=== PATIENT | female | born 1985 | race Two or more races ===

== ENCOUNTER 2020-02-24 10:08 | Outpatient (REF) | payer OTHER, SELFPAY ==
[2020-02-25 14:17] LABS: BV Int Neg Control Negative (Negative); BV Int Pos Control Positive (Positive)
[2020-02-28 04:57] LABS: CT PCR NOT DETECTED (Not Detect.); NG PCR NOT DETECTED (Not Detect.)
[2020-02-28 18:37] LABS: HPV mRNA E6/E7 rflx Not Detected (Not Detected)
== END 2020-02-24 10:09 | disposition home or self-care (01) ==
LOC: HO.LAB 10:08
PROVIDERS: PCP Internal Medicine; Referring Provider Internal Medicine; Visit Provider Advanced Practice Midwife
DX: Z01.419 Encounter for gynecological examination (general) (routine) without abnormal findings (principal); Z87.42 Personal history of other diseases of the female genital tract
CPT/HCPCS: 87480; 87491; 87510; 87591; 87624; 87625; 87660; 88142

== ENCOUNTER 2020-02-25 12:22 | Outpatient (REF) | payer OTHER, SELFPAY | END 2020-02-25 12:23 | disposition home or self-care (01) | LOC: HO.LAB 12:22 | PROVIDERS: Visit Provider Advanced Practice Midwife | DX: Z13.89 Encounter for screening for other disorder (principal) ==

== ENCOUNTER 2020-07-16 15:16 | Outpatient (REF) | payer OTHER, SELFPAY ==
[2020-07-16 15:44] LABS: MANUAL DIFF FLAG NO
[2020-07-16 15:54] LABS: Basophils Percent Auto 0.6 % (0-2); Eosinophils Absolute Auto 0.1 X10*3/uL (0.0-0.4); Eosinophils Percent Auto 1.2 % (0-4); Hematocrit 38.9 % (37-47); Hemoglobin 12.9 g/dl (12.0-16.0); Imm Gran Abs Auto 0.02 X10*3/uL (0.00-0.03); Imm Gran Pct Auto 0.4 % (0.0-0.4); Lymphocytes Absolute Auto 1.4 X10*3/uL (1.2-4.9); Lymphocytes Percent Auto 28.7 % (20-40); Mean Corpuscular HGB Conc 33.2 g/dl (31.0-35.0); Mean Corpuscular Hemoglobin 30.5 pg (27.0-33.0); Mean Platelet Volume 10.6 fL (9.4-12.3); Monocytes Absolute Auto 0.4 X10*3/uL (0.1-1.2); Monocytes Percent Auto 7.4 % (2-11); Neutrophils Absolute Auto 3.1 X10*3/uL (2.0-8.3); Neutrophils Percent Auto 61.7 % (45-73); Platelet Count 244 X10*3/uL (160-400); Red Blood Count 4.23 X10*6/uL (4.20-5.50); Red Cell Distribution Width 12.5 % (11.0-16.0)
[2020-07-16 15:57] LABS: Glucose Urine UA NEG (NEG); Leukocyte Esterase Urine NEG (NEG); Nitrite Urine NEG (NEG); PH 5.5 (5.0-8.0); Specific Gravity - Urine >= 1.030 (1.005-1.025); Urine Blood 1+ (NEG); Urine Ketones NEG (NEG); Urine Protein NEG (NEG-TRACE)
[2020-07-16 15:59] LABS: Appearance Urine CLEAR; Color Urine YELLOW
[2020-07-16 16:05] LABS: Squamous Epithelial Cell Urine 1+ /LPF; WBC Urine 0 /HPF (0-4)
[2020-07-16 16:06] LABS: Bacteria Urine TRACE /LPF
[2020-07-16 16:44] LABS: Alanine Aminotransferase 9 U/L (0-31); Albumin Level 3.9 g/dL (3.5-5.0); Alkaline Phosphatase 55 U/L (39-117); Anion Gap 9 (12-20); Aspartate Amino Transferase 13 U/L (5-31); Bilirubin Total 0.4 mg/dL (0.0-1.0); Blood Urea Nitrogen 11 mg/dL (9-16); C Reactive Protein 0.19 mg/dL (< or = 0.50); Calcium 9.3 mg/dL (8.4-10.2); Carbon Dioxide 27 mmol/L (22-29); Chloride 108 mmol/L (96-108); Estimated Glomerular Filt Rate > 60; Glucose Random 96 mg/dL (60-115); Lipase 19 U/L (8-78); Potassium 3.8 mmol/L (3.3-5.1); Sodium 140 mmol/L (135-145); Total Protein 6.9 g/dL (6.5-8.0)
== END 2020-07-16 15:17 | disposition home or self-care (01) ==
LOC: HO.LAB 15:16
PROVIDERS: PCP Internal Medicine; Visit Provider Internal Medicine
DX: R10.11 Right upper quadrant pain (principal); N83.209 Unspecified ovarian cyst, unspecified side; N80.9 Endometriosis, unspecified
CPT/HCPCS: 36415; 80053; 81001; 83690; 85025; 86140; 87086; 87147

== ENCOUNTER 2020-08-04 09:49 | Outpatient (REF) | payer OTHER, SELFPAY ==
--- NOTE | ~2020-08-04 | US_ITS ---
EXAMINATION: US ABDOMEN COMPLETE CLINICAL INFORMATION: Right upper quadrant pain. COMPARISON: KUB dated 07/30/2015. Renals only ultrasound dated 07/27/2015. TECHNIQUE: Real-time imaging of the abdominal viscera. Technically difficult study secondary to bowel gas. FINDINGS: PANCREAS: The head and body the pancreas are normal. The tail is not well visualized due to bowel gas. ABDOMINAL AORTA: The proximal, mid, and distal segments are normal in caliber. INFERIOR VENA CAVA: Visualized portions are normal. LIVER: Normal. The liver is normal in size. The liver contour is normal. Parenchymal echogenicity is normal. No focal hepatic lesion. There is no intrahepatic biliary duct dilatation seen. GALLBLADDER: Normal. The gallbladder is physiologically distended without evidence of stones, sludge, polyps, wall thickening or pericholecystic fluid. COMMON BILE DUCT: Normal in caliber measuring 0.4 cm in diameter. RIGHT KIDNEY: Normal. No hydronephrosis. No renal calculi or focal parenchymal lesions. The kidney measures 11.6 cm in maximum dimension. LEFT KIDNEY: Normal. No hydronephrosis. No renal calculi or focal parenchymal lesions. The kidney measures 12.0 cm in maximum dimension. SPLEEN: Normal. The spleen measures 9.7 cm in maximum dimension. FREE FLUID: None. US/US abdomen complete IMPRESSION: Normal-appearing gallbladder. No gallstone seen. Limited visualization of the pancreas.
== END 2020-08-04 09:50 | disposition home or self-care (01) ==
LOC: HO.US 09:49
PROVIDERS: PCP Internal Medicine; Visit Provider Internal Medicine
DX: R10.11 Right upper quadrant pain (principal); N20.0 Calculus of kidney
CPT/HCPCS: 76700

== ENCOUNTER → 2020-09-24 14:51 | Outpatient (BNVA) | payer OTHER, SELFPAY | PROVIDERS: PCP Physician Assistant | DX: N39.0 Urinary tract infection, site not specified (principal) | CPT/HCPCS: 99202 ==

== ENCOUNTER 2020-12-17 14:00 | Outpatient (RCR) | payer OTHER, SELFPAY ==
--- NOTE | 2020-10-27 15:15 | MHC.PT.EP ---
[facility] [place] Office [place] Office [place] Office [address] [phone] F: [phone] F: [phone] F: [phone] F: [phone] Physical Therapy Plan of Care Date of Evaluation: Date of Surgery: Diagnosis: THORACOLUMBAR/LUMBOSACRAL DISC DISEASE Assessment: 34 YO FEMALE REF TO PT WITH THORACOLUMBAR PAIN- SHE NOTES TRAUMA IN 2013 AND PROGRESSIVE LBP SINCE. 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 Pt STATES SHE SPENDS A LOT OF TIME LYING IN BED DUE TO PAIN. OBJECTIVE FINDINGS: DECR POSTURAL AWARENESS W MILD SCOLIOSIS, DECR LUMBOPELVIC STRENGTH AND STABILITY, (+) SOFT TISSUE IRRIT IN LEFT > RIGHT PS MM, AND PAINFUL TRUNK AROM (END RANGE). FUNCTIONAL LIMITATIONS INCLUDE DECR FUNCT SQUAT, HABITUAL TRUNK FLEX W BODY MECH, DECR KYRA TO HOUSE CHORES, STANDING, COOKING, AND SLEEPING COMFORTABLY. SHE DENIES RADICULAR SXS OR BOWEL / BLADDER SIGNS/SXS. Frequency and Duration: The patient will be seen 2X wk X 5 wks Short Term Goals: Pt'S BACK PAIN DECR TO 2-3/10 W ADLs IN 2 WKS Pt DEMON WFL FUNCTIONAL SQUAT MECH IN 2 WKS Pt INDEP SELF CORRECT POSTURE W 3:3 SIMU ADLs / CELL PHONE/ READING IN 2 WKS Tire Technician Goals: Pt INDEP HEP AND SELF SX MGMT TECHN IN 5 WKS Pt'S RESUME REGULAR ADLs AND FITNESS/ EVIDENT BY OSWESTRY IMPROVED BY 8 POINTS (20/50 AT EVAL) IN 5 WKS Treatment Plan: Modalities to reduce pain, spasms and effusion. Manual therapy to restore motion and function. Therapeutic exercise to improve strength and flexibility. Neuromuscular re-education for posture and balance. Therapeutic activities to return to functional activities of daily living. Electronically signed by: Jess Macdonald,PT Please sign and return to therapist. Thank you for your referral.
--- NOTE | 2020-12-17 15:09 | MHC.PT.DC ---
[facility] [place] Office [place] Office [place] Office [address]anna [address] [phone] F: [phone] F: [phone] F: [phone] F: [phone] Physical Therapy Discharge Report Diagnosis: THORACOLUMBAR/LUMBOSACRAL DISC DISEASE Date of Surgery: Date of Evaluation: 10/27/20 Date of Discharge: 12/17/20 Treatments to Date: 12 Cancellations to Date: 2 No Shows to Date: Discharge Status: Achieved Goals Improved Function Independent with HEP Discharge Summary: Pt HAS PROGRESSED NICELY IN PT- HER LBP HAS RESOLVED AND SHE IS INDEP W HER HEP- SHE DEMON IMPROVED SELF -SX MGMT TECHN, INDEP SELF-POSTURAL CORRECTION, AND WFL BODY MECH. SHE MET HER PT GOALS AT THIS TIME, ESPEC EVIDENT W IMPROVED OSWESTRY SCORE OF 3/50 (AT EVAL 20/50) Electronically signed by: Jess Macdonald,PT Please sign and return to therapist. Thank you for your referral.
== END 2020-12-17 15:07 | disposition home or self-care (01) ==
LOC: HO.PT 14:00
PROVIDERS: PCP Physician Assistant; Visit Provider Physician Assistant
DX: M51.9 Unspecified thoracic, thoracolumbar and lumbosacral intervertebral disc disorder (principal); L98.9 Disorder of the skin and subcutaneous tissue, unspecified
CPT/HCPCS: 97110; 97112; 97140; 97161; 97530

== ENCOUNTER → 2021-04-04 15:04 | Outpatient (BNVA) | payer OTHER, SELFPAY | PROVIDERS: PCP Physician Assistant; Visit Provider Advanced Practice Midwife ==

== ENCOUNTER 2022-09-01 14:03 | Outpatient (REF) | payer OTHER, SELFPAY ==
[2022-09-02 01:14] LABS: CT PCR NOT DETECTED (Not Detect.); NG PCR NOT DETECTED (Not Detect.)
[2022-09-02 10:02] LABS: BV Int Neg Control Negative (Negative); BV Int Pos Control Positive (Positive)
[2022-09-06 06:29] LABS: HPV mRNA E6/E7 rflx Not Detected (Not Detected)
== END 2022-09-01 14:04 | disposition home or self-care (01) ==
LOC: HO.LNP 14:03
PROVIDERS: PCP Physician Assistant; Visit Provider Advanced Practice Midwife
DX: Z01.419 Encounter for gynecological examination (general) (routine) without abnormal findings (principal); Z11.51 Encounter for screening for human papillomavirus (HPV); N94.4 Primary dysmenorrhea; Z20.2 Contact with and (suspected) exposure to infections with a predominantly sexual mode of transmission
CPT/HCPCS: 0353U; 87480; 87510; 87624; 87660; 88142

== ENCOUNTER 2022-09-04 12:23 | Outpatient (REF) | payer OTHER, SELFPAY ==
[2022-09-04 13:19] LABS: Hematocrit 38.9 % (37.0-47.0); Hemoglobin 12.7 g/dl (12.0-16.0); Mean Corpuscular HGB Conc 32.6 g/dl (31.0-35.0); Mean Corpuscular Hemoglobin 30.8 pg (27.0-33.0); Mean Corpuscular Volume 94.4 fL (80.0-98.0); Mean Platelet Volume 11.2 fL (9.4-12.3); Platelet Count 220 X10*3/uL (160-400); Red Blood Count 4.12 X10*6/uL (4.20-5.50); Red Cell Distribution Width 12.9 % (11.0-16.0); White Blood Count 4.5 X10*3/uL (4.8-10.8)
[2022-09-04 14:06] LABS: Erythrocyte Sedimentation Rate 4 MM/HR (0-20)
[2022-09-04 14:18] LABS: Rheumatoid Factor < 13.0 IU/mL (<15.0)
[2022-09-04 14:33] LABS: Alanine Aminotransferase 8 U/L (0-31); Albumin Level 3.7 g/dL (3.5-5.0); Alkaline Phosphatase 55 U/L (39-117); Anion Gap 12 (12-20); Aspartate Amino Transferase 14 U/L (5-31); Bilirubin Total 0.2 mg/dL (0.0-1.0); Blood Urea Nitrogen 13 mg/dL (9-16); Calcium 9.2 mg/dL (8.4-10.2); Carbon Dioxide 24 mmol/L (22-29); Chloride 108 mmol/L (96-108); Estimated Glomerular Filt Rate > 60; Glucose Fasting 92 mg/dL (60-99); Potassium 3.8 mmol/L (3.3-5.1); Sodium 140 mmol/L (135-145); Total Protein 6.9 g/dL (6.5-8.0)
[2022-09-04 14:57] LABS: TSH reflex Free T4 0.51 uIU/mL (0.32-4.0)
[2022-09-05 02:43] LABS: DHEA Sulfate 39 mcg/dL (19-237)
[2022-09-05 14:12] LABS: Cyclic Citrullinated Peptide <16 UNITS
[2022-09-05 22:59] LABS: Anti Nuclear Antibody Screen POSITIVE (NEGATIVE); Anti Nuclear Antibody Titer 1:40 titer
[2022-09-08 17:03] LABS: Testosterone, Free 2.4 pg/mL (0.1-6.4); Testosterone, Total 24 ng/dL (2-45)
== END 2022-09-04 12:24 | disposition home or self-care (01) ==
LOC: HO.LAB 12:23
PROVIDERS: Absent Provider Physician Assistant; PCP Physician Assistant; Visit Provider Advanced Practice Midwife
DX: M25.50 Pain in unspecified joint (principal); E66.9 Obesity, unspecified; Z68.30 Body mass index [BMI] 30.0-30.9, adult; L70.9 Acne, unspecified; L68.0 Hirsutism; Z13.1 Encounter for screening for diabetes mellitus; Z87.42 Personal history of other diseases of the female genital tract; Z01.419 Encounter for gynecological examination (general) (routine) without abnormal findings; E28.2 Polycystic ovarian syndrome
CPT/HCPCS: 36415; 80053; 82627; 83002; 84402; 84403; 84443; 85027; 85652; 86038; 86039; 86200; 86431

== ENCOUNTER → 2022-09-07 09:21 | Outpatient (BNVA) | payer OTHER, SELFPAY | PROVIDERS: PCP Physician Assistant; Visit Provider Internal Medicine Rheumatology ==

== ENCOUNTER 2022-09-08 13:41 | Outpatient (REF) | payer OTHER, SELFPAY ==
--- NOTE | ~2022-09-08 | US_ITS ---
EXAMINATION: US PELVIS CLINICAL INFORMATION: Dysmenorrhea COMPARISON: 07/27/2015 TECHNIQUE: Ultrasound of the pelvis is performed using both transabdominal and transvaginal transducers along with Doppler. Transvaginal imaging is performed due to inadequate visualization transabdominally. FINDINGS: Uterus: The uterus is anteverted and measures 8.1 x 3.1 x 1.5 cm. Incidental nabothian cysts. The double wall endometrial thickness is 0.6 mm. The uterus is smooth in contour and has normal myometrial echogenicity. No visible fibroid. Adnexa: Both ovaries are visualized. There is normal color flow to the adnexa. There is no ovarian torsion. There is no pelvic ascites or fluid collection. Both ovaries measure approximately 10 and 7 mL in volume within normal limits. US/US pelvic and transvaginal IMPRESSION: Unremarkable exam.
[2022-09-08 14:36] LABS: MANUAL DIFF FLAG NO
[2022-09-08 14:58] LABS: Basophils Percent Auto 0.5 % (0-2); Eosinophils Percent Auto 0.5 % (0-4); Hematocrit 38.8 % (37.0-47.0); Imm Gran Abs Auto 0.01 X10*3/uL (0.00-0.03); Imm Gran Pct Auto 0.2 % (0.0-0.4); Lymphocytes Absolute Auto 1.2 X10*3/uL (1.2-4.9); Mean Corpuscular HGB Conc 33.5 g/dl (31.0-35.0); Mean Corpuscular Hemoglobin 30.9 pg (27.0-33.0); Mean Corpuscular Volume 92.2 fL (80.0-98.0); Mean Platelet Volume 11.4 fL (9.4-12.3); Monocytes Absolute Auto 0.4 X10*3/uL (0.1-1.2); Monocytes Percent Auto 6.9 % (2-11); Neutrophils Percent Auto 70.9 % (45-73); Platelet Count 209 X10*3/uL (160-400); Red Blood Count 4.21 X10*6/uL (4.20-5.50); Red Cell Distribution Width 12.7 % (11.0-16.0); White Blood Count 5.6 X10*3/uL (4.8-10.8)
[2022-09-08 15:44] LABS: Erythrocyte Sedimentation Rate 6 MM/HR (0-20)
[2022-09-08 19:44] LABS: C Reactive Protein 0.12 mg/dL (< or = 0.50)
[2022-09-08 20:11] LABS: Creatinine Urine 39.82 mg/dL; Total Protein Urine Random < 7 mg/dL (<12)
[2022-09-11 18:15] LABS: Complement C3 123 mg/dL (83-193)
[2022-09-11 18:49] LABS: Anti DNA DS Antibody <1 IU/mL; SM/Ribonucleoprotein Ab <1.0 NEG AI (<1.0 NEG); Smith Protein <1.0 NEG AI (<1.0 NEG)
== END 2022-09-08 13:42 | disposition home or self-care (01) ==
LOC: HO.US 13:41
PROVIDERS: Absent Provider Internal Medicine Rheumatology; PCP Physician Assistant; Visit Provider Nurse Practitioner Family
DX: N94.4 Primary dysmenorrhea (principal); R76.8 Other specified abnormal immunological findings in serum; Z87.42 Personal history of other diseases of the female genital tract
CPT/HCPCS: 36415; 76830; 76856; 84156; 85025; 85652; 86140; 86160; 86225; 86235

== ENCOUNTER → 2022-09-21 13:41 | Outpatient (BNVA) | payer OTHER, SELFPAY | PROVIDERS: PCP Physician Assistant; Visit Provider Advanced Practice Midwife ==

== ENCOUNTER 2022-11-14 10:42 | Outpatient (AMB) | payer OTHER, SELFPAY ==
--- NOTE | 2022-11-14 10:47 | MHC.OFFWIV ---
Intake Vital Signs 11/14/22 10:48 Height 5 ft 4 in Weight 82.1 kg BMI 31.1 BP 126/70 Blood Pressure Location Lt brachial Position Sitting Pulse 75 Pulse Source Pulse Oximeter Temp 97.8 F Temp Source Oral Pulse Oximetry (%) 98 Intake Visit Reasons: EST/severe lower back pain, trouble standing Intake Note: pt is here for c/o lower back pain, trouble standing and walking denies fall/injury Patient Tobacco Use Status: Never used Tobacco Allergies paliperidone [From INVEGA] Allergy (Unknown, Verified 11/14/22 10:49) ANXIETY risperidone [From RISPERDAL] Allergy (Unknown, Verified 11/14/22 10:49) UNKNOWN Do you need a note to return to daycare/school/sports/work: Yes HPI HPI Comments History of Present Illness Details 1121 36-year-old female presents to the clinic for evaluation of severe lower back pain X few days ( hx of lower back pain since 2013 per patient), she reports pain is 10/10, worse with movement better at rest and better w/ back brace. Reports atraumatic in nature. tells me she feels in bilateral sides on her lower back. Pain started suddenly. No history of IV drug abuse, malignancy. Denies fevers, chills, numbness, tingling, saddle paresthesias, urinary/bowel incontinence/retention, chest pain, shortness of breath, abdominal pain. Physical exam of bilateral lower lumbar tenderness to palpation in the paraspinous region bilaterally. No midline tenderness. Positive straight leg raise bilaterally. Concerns for her lumbar radiculopathy versus herniated disc. No signs of cord compression, on neurovascular compromise, epidural abscess, cauda equina. Plan Toradol, Lidoderm patch, cyclobenzaprine and prednisone. Educated patient on diagnosis and treatment plan, answered all question, patient verbalizes understanding. At this time patient will be discharged home, advised to return with new or worsening symptoms. Educated on worrisome signs and symptoms and when to return. At this time I feel comfortable discharge home. [facility] Medical History Hernia Kidney stone Ovarian cyst Polyarthralgia UTI (urinary tract infection) Surgical History H/O wisdom tooth extraction Hx of cystoscopy Hx of hernia repair Family History Mother HTN (hypertension) Skin cancer Afib Sister Connective tissue disorder Other Family history of lupus erythematosus Social History Household Members: Spouse Housing: House Alcohol intake: current Alcohol intake frequency: holidays/special occasions only Patient Tobacco Use Status: Never used Tobacco e-Cigarette/Vaping Use: Never Used Second Hand Smoke Exposure: No Current occupational status: employed 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 Cognitive needs: No Hearing needs: No Vision needs: No Female Reproductive History Menstrual Age of Menarche: 11 Review of Systems Const Details: Constitutional : No Weight loss, No Fever, No Chills, ENT/Mouth : No Hearing loss, No Ear Pain, No Nasal Congestion, No Sinus Pain, No Hoarseness, No sore throat, No Rhinorrhea, No Swallowing Difficulty Cardiovascular : No Chest Pain, No SOB Respiratory : No Cough, No Dyspnea Gastrointestinal : No Nausea, No Vomiting, No Diarrhea, No abdominal Pain, No Hematochezia, No Melena Genitourinary : No Dysuria, No Urinary Frequency, No Hematuria, No Urinary Incontinence, Musculoskeletal : positive back pain Skin : No Skin Lesions, No rash Neuro : No Weakness, No Numbness, No Paresthesias, no loss of bowel or bladder incontinence, no saddle anesthesia All systems reviewed & are unremarkable except as noted in HPI and below Physical Exam Vital Signs: Last Vital Signs Temp 97.8 F 11/14/22 10:48 Pulse 75 11/14/22 10:48 BP 126/70 11/14/22 10:48 Pulse Ox 98 11/14/22 10:48 BMI result Body Mass Index 31.1 vss Appearance: Alert.? Oriented X3.? No acute distress.? Head: Normocephalic, atraumatic, no step-offs or deformities Eyes: Pupils equal, round and reactive to light.? CVS: Normal heart rate and rhythm.? Pulses normal.? Respiratory: No respiratory distress.? Breath sounds normal.? Abdomen: Soft and nontender.? Skin: Skin warm and dry.? Normal skin color.? Normal skin turgor.? Extremities: No lower extremity edema.? No calf ttp. 5/5 strength to bilateral upper and lower extremities Back: No midline tenderness, no C-spine tenderness, full range of motion, no CVA tenderness bilaterally bilateral lower lumbar tenderness to palpation in the paraspinous region bilaterally. No midline tenderness. Positive straight leg raise bilaterally. Neuro: Oriented X 3.? No motor deficit.? No sensory deficit. CN 2-12 intact . Patient ambulating with slow gait. Normal coordination. No saddle paresthesia Assessment & Plan Assessment & Plan (1) Lumbar radiculopathy: Code(s): M54.16 - Radiculopathy, lumbar region Plan Take your medications as prescribed. If you were prescribed antibiotics today, it is important that you take your medication to their entirety, do not skip any doses, do not finish them early. Follow-up with your primary care provider this week. Return to the emergency department with new or worsening symptoms. Such as fevers, chills, chest pain, shortness of breath, nausea, vomiting, dizziness, headache, vision changes, lethargy In case of emergency call 911 Medications: New prednisone 40 mg (2 x 20 mg) PO DAILY 10 tabs 0RF 5 days lidocaine 4% (AsperFlex (lidocaine)) 1 patch topical DAILY PRN 15 ea 0RF pain cyclobenzaprine 10 mg PO BEDTIME PRN 14 tabs 0RF muscle spasm ketorolac 10 mg PO Q8H PRN 15 tabs 0RF pain Coding Level of Care Code Est Pt Level 3 (46474) Diagnoses Lumbar radiculopathy M54.16
[2022-11-14 10:48] VITALS: BP 126/70; PULSE 75; TEMP 36.6; O2SAT 98; BMI 31.1
== END 2022-11-14 11:43 | disposition home or self-care (01) ==
PROVIDERS: PCP Physician Assistant; Visit Provider Physician Assistant
DX: M54.16 Radiculopathy, lumbar region (principal)
CPT/HCPCS: 96372; 99213; J1885

== ENCOUNTER 2022-12-07 14:01 | Outpatient (AMB) | payer OTHER, SELFPAY ==
[2022-12-07 14:06] VITALS: BP 108/70; RESP 12; TEMP 28.3; O2SAT 97; BMI 30.2
--- NOTE | 2022-12-07 14:06 | MHC.PC.OV ---
Vital Signs 12/07/22 14:06 Height 5 ft 4 in Weight 176 lb 4 oz BMI 30.2 BP 108/70 Blood Pressure Location Lt brachial Position Sitting Respiration 12 Pulse Source Pulse Oximeter Temp 83 F L Pulse Oximetry (%) 97 Oxygen Delivery Method Room Air Intake Visit Reasons: Severe back pain Intake Note: Patient states that something happened at the end of october where patient couldn't move for like 3 days. Patient states that she went to [facility] walk in and was given a shot to help with pain. The shot worked and patient was instructed to take prednisone twice a day for 5 days as well as cyclobenzaprine. 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 Accompanied by: Self / Same As Patient Allergies paliperidone [From INVEGA] Allergy (Unknown, Verified 12/08/22 05:42) ANXIETY risperidone [From RISPERDAL] Allergy (Unknown, Verified 12/08/22 05:42) UNKNOWN Medication List - Last Reconciled 12/08/22 by Sheila Davila, JORGE clonazepam 0.5 mg PO BID PRN cyclobenzaprine 10 mg PO BEDTIME PRN escitalopram oxalate (Lexapro) 20 mg PO DAILY ketorolac 10 mg PO Q8H PRN lidocaine 4% (AsperFlex (lidocaine)) 1 patch topical DAILY PRN meloxicam 15 mg PO DAILY 30 days prednisone 40 mg (2 x 20 mg) PO DAILY 5 days Tobacco use date assessed: 02/01/22 Dental Screening Dental Screen Date: 12/07/22 Did you have a dental visit in the last 12 months?: No Did you have a dental problem in the last 6 months where you did not have access to dental care?: No Was dental information given to patient?: Patient has dentist HPI HPI Comments History of Present Illness Details 37-year-old female past medical history significant for generalized anxiety disorder, depression polyarthralgia, fibromyalgia, lumbar spine pain. Patient of Steven Wren patient presents today for back pain review of the notes patient was seen in the walk-in clinic on 11/14/2022 with 10/10 on bilateral sides started suddenly, denies any injury, denied any numbness, tingling and saddle paresthesias at that time and denied any bowel or bladder incontinence. Concern for lumbar radiculopathy versus herniated disc patient was treated with IM Toradol injection and discharged home on Lidoderm patch, cyclobenzaprine and prednisone patient was advised to follow-up with PCP. Patient states after trt with above meds started to get back to normal. Patient states pain is more left sided lower back, denies radiating pain, denies numbness and tingling. Denies any bowel or bladder incontinence. Patient denies the need for refill on muscle relaxer. PFSH Medical History UTI (urinary tract infection) Polyarthralgia Kidney stone Hernia Ovarian cyst Surgical History Hx of hernia repair H/O wisdom tooth extraction Hx of cystoscopy Family History Mother HTN (hypertension) Skin cancer Afib Sister Connective tissue disorder Other Family history of lupus erythematosus Social History Household Members: Spouse Housing: House Alcohol intake: current Alcohol intake frequency: holidays/special occasions only Patient Tobacco Use Status: Never used Tobacco e-Cigarette/Vaping Use: Never Used Second Hand Smoke Exposure: No Current occupational status: employed 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 Vimal Chang, Arely Pace, Noah Bonilla and colleagues, with an educational jaime from [employer]. Review of Systems Const Denies chills, Denies fatigue, Denies fever(s) and Denies poor appetite Eyes Denies no additional complaints ENT Reports Normal hearing present Card Denies chest pain, Denies syncope, Denies rapid heart rate and Denies dyspnea Resp Denies cough and Denies dyspnea GI Denies change in stool character, Denies constipation, Denies diarrhea, Denies nausea and Denies vomiting Denies urinary frequency, Denies dysuria and Denies urinary urgency Musc Reports back pain (left sided ) Neuro Reports Normal hearing present, Denies confusion and Denies syncope Psych Denies confusion Endo Denies fatigue Physical exam (Primary Care) Vital Signs: Last Vital Signs Temp 83 F L 12/07/22 14:06 Resp 12 12/07/22 14:06 BP 108/70 12/07/22 14:06 Pulse Ox 97 12/07/22 14:06 Oxygen Delivery Method Room Air 12/07/22 14:06 BMI result Body Mass Index 30.2 Tobacco/Smoking Status: Tobacco use Status Tobacco use date assessed 02/01/22 12/07/22 14:18 Patient Tobacco Use Status Never used Tobacco 12/07/22 14:18 e-Cigarette/Vaping Use Never Used 12/07/22 14:18 Thrive Assessment: Date of Thrive Assessment Date Thrive assessed 02/01/22 12/07/22 14:18 Const General: No confusion Orientation/consciousness: No confusion HENMT Head: Yes normocephalic and Yes atraumatic Eyes Conjunctivae: conjunctivae normal Chest Chest palpation & inspection: normal inspection of the chest Resp Effort & Inspection: normal respiratory effort Auscultation: clear to auscultation bilaterally, no crackles, no rhonchi and no wheezes Cardio Rate: regular rate Rhythm: regular rhythm Heart sounds: S1 normal heart sound present and S2 normal heart sound present GI Inspection: Yes normal to inspection Back/Spine/Pelvis Cervical Spine: normal cervical lordosis Thoracic/Lumbar Spine: thoracic and lumbar spine normal to inspection, paraspinal muscle tenderness on the left, No thoracic spinal tenderness and No lumbar spinal tenderness Pelvis: sciatic notch tenderness on the left Neuro General: No confusion Cranial nerves: Yes Normal hearing present Extrem General: No edema Assessment and Plan Assessment & Plan (1) Lumbar back pain: Code(s): M54.50 - Low back pain, unspecified Plan: Patient advise can continue to use cyclobenzaprine as needed as well as meloxicam for pain and anti-inflammatory. Lumbar spine x-ray ordered, referral entered to physical therapy. Patient advised no improvement of back pain advised to follow-up. Signs and symptoms reviewed with patient when to seek emergency medical attention Plan Keep scheduled follow-up with PCP in 2 months or follow-up sooner if needed. Orders: Orders XR lumbar spine 2-3V 12/07/22 M54.50 - Low back pain, unspecified, Z12.4 - Encounter for screening for malignant neoplasm of cervix PT Evaluation and Treatment 12/07/22 M54.50 - Low back pain, unspecified Coding Level of Care Code Est Pt Level 3 (00107) Diagnoses Lumbar back pain M54.50
== END 2022-12-07 14:41 | disposition home or self-care (01) ==
PROVIDERS: PCP Physician Assistant; Visit Provider Nurse Practitioner Family
DX: M54.50 Low back pain, unspecified (principal)
CPT/HCPCS: 99213

== ENCOUNTER 2023-02-15 13:35 | Outpatient (AMB) | payer OTHER, SELFPAY ==
--- NOTE | 2023-02-15 13:50 | MHC.PC.OV ---
Vital Signs 02/15/23 13:57 02/15/23 14:10 Height 5 ft 4 in Weight 181 lb 4 oz BMI 31.1 BP 92/64 108/80 Blood Pressure Location Lt brachial Position Sitting Pulse 64 Pulse Source Pulse Oximeter Pulse Oximetry (%) 97 Oxygen Delivery Method Room Air Intake Visit Reasons: Annual Exam Intake Note: Patient is here today for a physical. Labeling Associate Required: No Accompanied by: Self / Same As Patient Allergies paliperidone [From INVEGA] Allergy (Unknown, Verified 02/15/23 13:58) ANXIETY risperidone [From RISPERDAL] Allergy (Unknown, Verified 02/15/23 13:58) UNKNOWN Medication List - Last Reconciled 02/15/23 by Bong Wren PA-C clonazepam 0.5 mg PO BID PRN cyclobenzaprine 10 mg PO BEDTIME PRN cyclobenzaprine 10 mg PO BEDTIME PRN escitalopram oxalate (Lexapro) 30 mg PO DAILY meloxicam 15 mg PO DAILY 30 days Tobacco use date assessed: 02/15/23 Dental Screening Dental Screen Date: 02/15/23 Did you have a dental visit in the last 12 months?: No Did you have a dental problem in the last 6 months where you did not have access to dental care?: No Was dental information given to patient?: Patient has dentist HPI Annual Exam HPI Details Patient is a 37-year-old female here today for annual physical.? Patient has a past medical history significant for ovarian cyst, obesity,? YASSINE, OCD and Autism spectrum. Concerns--> reports having episode of lower lumbar spine pain that radiates down her lower legs. Did see urgent care and was given prednisone and Toradol. Doing better now without any further pain in her lower back. She is concerned about a disc disease in her lumbar spine. .. Obesity:? She does understand her BMI is over 30 will continue to work on diet modifications and being more physically active to reduce her weight. .. Polyarthralgia: Has started meloxicam which she reports is helpful for her joint pains. Has seen rhe and was told most of her pains are related to her fibromyalgia. umatologist ,.. YASSINE: She continues to follow with mental health psychiatrist who manages her mental health medications. Does use clonazepam on a very limited p.r.n. basis. Vaccines:? Up-to-date COVID vaccine, UTD With Tdap. need Flu vaccine (declines today) . .. RING CONDUCTOR: Patient is followed by wash worker specialist in his up-to-date with Pap [facility] Medical History UTI (urinary tract infection) Polyarthralgia Kidney stone Hernia Ovarian cyst Surgical History Hx of hernia repair H/O wisdom tooth extraction Hx of cystoscopy Family History Mother HTN (hypertension) Skin cancer Afib Sister Connective tissue disorder Other Family history of lupus erythematosus Social History Household Members: Spouse Housing: House Alcohol intake: current Alcohol intake frequency: holidays/special occasions only Patient Tobacco Use Status: Never used Tobacco e-Cigarette/Vaping Use: Never Used Second Hand Smoke Exposure: No service: No Current occupational status: employed 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 Cognitive needs: No Hearing needs: No Vision needs: No Female Reproductive History Menstrual Age of Menarche: 11 Questionnaire Thrive Questionnaire Date Thrive assessed: 02/01/22 YASSINE-7 AMB Questionnaire YASSINE-7 Date YASSINE - 7 assessed: 02/01/22 Feeling nervous, anxious, or on edge: 0 = Not at all Not being able to stop or control worryin = Not at all Worrying too much about different things: 0 = Not at all Trouble relaxin = Not at all Being so restless that it is hard to sit still: 0 = Not at all Becoming easily annoyed or irritable: 0 = Not at all Feeling afraid as if something awful might happen: 0 = Not at all Total YASSINE-7 score (0-4 normal; 5-9 mild; 10-14 moderate; 15-21 severe): 0 Source: Developed by Drs. Vimal Chang, Arely Pace, Noah Bonilla and colleagues, with an educational jaime from [employer]. YASSINE-7 Assessment Billing YASSINE-7 Assessment Tool: YASSINE-7 Assessment 18796 Review of Systems Const Reports body aches, Denies chills, Denies excessive sweating, Denies fatigue, Denies fever(s) and Denies headache(s) Eyes Denies blurry vision ENT Denies dysphagia, Denies vertigo, Denies dizziness, Denies headache(s), Denies hearing loss and Denies tinnitus Card Denies chest pain, Denies chest pain with activity, Denies syncope, Denies irregular heart rhythm and Denies dyspnea Resp Denies chest congestion, Denies cough, Denies hemoptysis, Denies dyspnea and Denies wheezing GI Denies abdominal pain, Denies melena, Denies hematochezia, Denies coffee ground emesis, Denies dysphagia, Denies diarrhea, Denies nausea and Denies vomiting Denies urinary frequency, Denies dysuria, Denies urinary hesitancy and Denies urinary urgency Musc Reports back pain, Reports arthralgias, Denies limited range of motion, Denies muscle cramps and Denies muscle weakness Skin/Breast Denies rash and Denies skin ulcer Neuro Denies Abnormal speech present, Denies confusion, Denies vertigo, Denies dizziness, Denies syncope, Denies headache(s), Denies memory loss and Denies seizure-like activity Psych Denies anxiety, Denies confusion, Denies depression, Denies memory loss, Denies panic attacks and Denies paranoia Endo Denies excessive sweating, Denies fatigue, Denies flushing, Denies polydipsia and Denies polyuria Aller/Immun Denies wheezing Physical exam (Primary Care) Vital Signs: Last Vital Signs Pulse 64 02/15/23 13:57 BP 92/64 02/15/23 13:57 Pulse Ox 97 02/15/23 13:57 Oxygen Delivery Method Room Air 02/15/23 13:57 BMI result Body Mass Index 31.1 BMI Assessment/Plan discussion: High Tobacco/Smoking Status: Tobacco use Status Tobacco use date assessed 02/01/22 02/15/23 13:50 Patient Tobacco Use Status Never used Tobacco 02/15/23 13:50 e-Cigarette/Vaping Use Never Used 02/15/23 13:50 Thrive Assessment: Date of Thrive Assessment Date Thrive assessed 02/01/22 02/15/23 13:50 Const Other: Obese General: cooperative, comfortable, no acute distress, alert and awake; No confusion Orientation/consciousness: oriented to person, oriented to place, patient oriented x3 and No confusion HENMT Head: Yes normocephalic Ears: external ears normal and TM's normal bilaterally Face and sinus: No sinus tenderness Mouth: Normal oral and palatal mucosa present and tongue normal Teeth and gingiva: dentition normal and gingiva normal Throat: Yes posterior oropharynx normal, Yes tonsils normal and Yes uvula midline Eyes Conjunctivae: conjunctivae normal Sclerae: sclerae normal Pupils: Equal, round and reactive pupils present EOM: EOMs intact bilaterally Direct Ophthalmoscopy: No no photophobia Neck Neck: Yes no lymphadenopathy, No tender and Yes no JVD Thyroid: Thyroid normal Carotids: no bruits Chest Chest palpation & inspection: no tenderness Resp Effort & Inspection: normal respiratory effort, no audible wheezes, not labored and no stridor Auscultation: no crackles, no rales, no rhonchi and no wheezes Cardio Jugular venous distension: no JVD Rate: regular rate, not bradycardic and not tachycardic Rhythm: regular rhythm Bruits: no carotid bruits Peripheral pulses: Peripheral pulses 2+ throughout GI Inspection: Yes normal to inspection, No abdominal wall ecchymosis and No visible herniation Palpation (GI): Soft to palpation, nontender, no guarding, not rigid and No hepatosplenomegaly present Auscultation: normoactive bowel sounds General: Yes no CVA tenderness Back/Spine/Pelvis Back: no CVA tenderness and No back tenderness Cervical Spine: cervical ROM normal Thoracic/Lumbar Spine: thoracic and lumbar spine normal to inspection, straight leg raise negative bilaterally, No thoraco-lumbar ROM limited and No lumbar spinal tenderness Skin Lesions: no lesions Rashes: no rashes Wounds: no wounds Neuro General: oriented to person, oriented to place, patient oriented x3, CN's II-XI intact bilaterally and No confusion Cranial nerves: Yes Equal, round and reactive pupils present and Yes Normal accommodation reflex present Cognition (Neuro): normal cognition Speech: No Abnormal speech present Gait exam (Neuro): Normal gait present Motor exam (neuro): 5/5 motor strength present throughout Extrem Right upper extremity: full ROM; no cyanosis Left upper extremity: full ROM; no cyanosis Right lower extremity: no edema Left lower extremity: no edema Psych Appearance: grossly normal Mental Status: mental status grossly normal Affect: normal affect Attitude: cooperative Thought process: Normal thought process present Assessment and Plan Assessment & Plan (1) Annual physical exam: Code(s): Z00.00 - Encounter for general adult medical examination without abnormal findings (2) Obese: Code(s): E66.9 - Obesity, unspecified Qualifiers: Body mass index: BMI 30.0-30.9 Obesity classification: adult class 1 (BMI 30 - 34.9) Obesity type: due to excess calories Serious obesity comorbidity presence: without serious comorbidity Qualified Code(s): E66.09 - Other obesity due to excess calories; Z68.30 - Body mass index [BMI] 30.0-30.9, adult Plan: Patient does understand her BMI is above 30 will work on being more physically active and adapt to better eating habits to reduce her weight (3) YASSINE (generalized anxiety disorder): Code(s): F41.1 - Generalized anxiety disorder Plan: By psychiatrist whom manages her mental health medications. Does take clonazepam on a very limited p.r.n. basis for high anxiety times (4) MDD (major depressive disorder), recurrent episode, moderate: Code(s): F33.1 - Major depressive disorder, recurrent, moderate Plan: Does follow a psychiatrist who manages her mental health medications. (5) Polyarthralgia: Code(s): M25.50 - Pain in unspecified joint Plan: Has seen a printed circuit board panels deburrer and reports she was told she had fibromyalgia. She does use meloxicam on a p.r.n. basis for joint inflammation and pain. (6) Lumbar back pain: Code(s): M54.50 - Low back pain, unspecified Plan: She reports several months ago having an acute episode of lower lumbar spine pain that radiates down her lower extremities. She feels that she had a disc herniation. She had not gotten x-ray or did any physical therapy. She is better now though still concerned about a disc disease in her lumbar spine. Advised on x-ray in physical therapy and if fails physical therapy will consider doing MRI of lumbar spine. Orders: Orders XR lumbar spine 1V Today M54.50 - Low back pain, unspecified PT Evaluation and Treatment Today M51.9 - Unspecified thoracic, thoracolumbar and lumbosacral intervertebral disc disorder, M54.50 - Low back pain, unspecified Medications: Refilled meloxicam 15 mg PO DAILY 30 days 30 tabs 4RF M25.50 - Pain in unspecified joint cyclobenzaprine 10 mg PO BEDTIME PRN 14 tabs 0RF muscle spasm M54.50 - Low back pain, unspecified Coding Level of Care Code Est Pt Prev Care 18-39y([id number]) Diagnoses Annual physical exam Z00.00 Class 1 obesity due to excess calories without serious comorbidity with body mass index (BMI) of 30.0 to 30.9 in adult E66.09; Z68.30 Body mass index: BMI 30.0-30.9 Obesity classification: adult class 1 (BMI 30 - 34.9) Obesity type: due to excess calories Serious obesity comorbidity presence: without serious comorbidity YASSINE (generalized anxiety disorder) F41.1 MDD (major depressive disorder), recurrent episode, moderate F33.1 Polyarthralgia M25.50 Lumbar back pain M54.50 Additional Codes YASSINE-7 Assessment Billing - YASSINE-7 Assessment Tool: YASSINE-7 Assessment 95155 ([id number])
[2023-02-15 13:57] VITALS: BP 92/64; PULSE 64; O2SAT 97; BMI 31.1
[2023-02-15 14:10] VITALS: BP 108/80
== END 2023-02-15 16:00 | disposition home or self-care (01) ==
PROVIDERS: Visit Provider Physician Assistant
DX: Z00.00 Encounter for general adult medical examination without abnormal findings (principal); F33.1 Major depressive disorder, recurrent, moderate; E66.09 Other obesity due to excess calories; Z68.30 Body mass index [BMI] 30.0-30.9, adult; F41.1 Generalized anxiety disorder; M25.50 Pain in unspecified joint; M54.50 Low back pain, unspecified
CPT/HCPCS: 99395

== ENCOUNTER 2023-03-22 15:53 | Outpatient (REF) | payer OTHER, SELFPAY | END 2023-03-22 15:54 | disposition home or self-care (01) | LOC: HO.LAB 15:53 | PROVIDERS: Visit Provider Nurse Practitioner Psychiatric/Mental Health | DX: Z51.81 Encounter for therapeutic drug level monitoring (principal); Z79.899 Other long term (current) drug therapy | CPT/HCPCS: 80053; 80307; 85025 ==

== ENCOUNTER 2023-07-19 16:34 | Outpatient (REF) | payer OTHER, SELFPAY ==
[2023-07-19 17:42] LABS: Appearance Urine Clear; Color Urine Yellow; Glucose Urine UA Negative (Negative); Leukocyte Esterase Urine Small (1+) (Negative); Nitrite Urine Negative (Negative); UMIC TRIGGER UACC YES; Urine Blood Negative (Negative); Urine Ketones 15 mg/dL (Negative); Urine Protein Negative (Neg-Trace)
[2023-07-19 17:46] LABS: Bacteria Urine None Seen (None Seen); Hyaline Casts Urine 0-2 /LPF (0-2); RBC Urine 0-2 /HPF (0-2); UACC Culture Trigger YES
== END 2023-07-19 16:35 | disposition home or self-care (01) ==
LOC: HO.LAB 16:34
PROVIDERS: PCP Physician Assistant; Visit Provider Physician Assistant
DX: R30.0 Dysuria (principal)
CPT/HCPCS: 81001; 87086; 87147

== ENCOUNTER 2023-08-29 14:22 | Outpatient (AMB) | payer OTHER, SELFPAY ==
[2023-08-29 14:26] VITALS: BP 102/62; PULSE 72; TEMP 36.7; O2SAT 98; BMI 27.8
--- NOTE | 2023-08-29 14:26 | AM.OFFWIN_ITS ---
Intake Vital Signs 08/29/23 14:26 Height 5 ft 4 in Weight 162 lb BMI 27.8 BP 102/62 Blood Pressure Location Rt brachial Position Sitting Pulse 72 Pulse Source Pulse Oximeter Temp 98.0 F Temp Source Temporal Artery Scan Pulse Oximetry (%) 98 Intake Visit Reasons: EP UTI Intake Note: pt is here today for UTI, had recent uti and it came right back Patient Tobacco Use Status: Never used Tobacco Allergies paliperidone [From INVEGA] Allergy (Unknown, Verified 08/29/23 14:39) ANXIETY risperidone [From RISPERDAL] Allergy (Unknown, Verified 08/29/23 14:39) UNKNOWN Do you need a note to return to daycare/school/sports/work: No HPI HPI Comments History of Present Illness Details The patient is a 37-year-old female with a past medical history of frequent UTIs and yeast infections who has complaining of a recurrent UTI. She states she was diagnosed on July 21 with a UTI, she was given a 7 day course of Bactrim which she took twice a day, in full. She states she felt better but now she has had 2 days of pain with urination, burning with urination, some abdominal pain and low back pain. She denies any fevers or blood in her urine. She states she has seen urology in the past for recurrent UTIs as well as been tested for diabetes by her primary care doctor. [facility] Medical History (Updated 08/29/23 @ 14:59 by Nay Mota PA-C) UTI (urinary tract infection) Polyarthralgia Kidney stone Hernia Ovarian cyst Surgical History Hx of hernia repair H/O wisdom tooth extraction Hx of cystoscopy Family History Mother HTN (hypertension) Skin cancer Afib Sister Connective tissue disorder Other Family history of lupus erythematosus Social History Household Members: Spouse Housing: House Alcohol intake: current Alcohol intake frequency: holidays/special occasions only Patient Tobacco Use Status: Never used Tobacco e-Cigarette/Vaping Use: Never Used Second Hand Smoke Exposure: No service: No Current occupational status: employed 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 Cognitive needs: No Hearing needs: No Vision needs: No Female Reproductive History Menstrual Age of Menarche: 11 Review of Systems Const All systems reviewed & are unremarkable except as noted in HPI and below Physical Exam Vital Signs: Last Vital Signs Temp 98.0 F 08/29/23 14:26 Pulse 72 08/29/23 14:26 BP 102/62 08/29/23 14:26 Pulse Ox 98 08/29/23 14:26 BMI result Body Mass Index 27.8 Const General: cooperative, healthy appearing, comfortable, no acute distress and well developed Orientation/consciousness: patient oriented x3 Limitations: no limitations HEENT Head: Yes normal to inspection Eyes General: appearance normal, both eyes and all related structures Neck Neck: Yes normal visual inspection and Yes full ROM GI Inspection: Yes normal to inspection Palpation (GI): Soft to palpation and nontender (suprapubic) Skin General skin exam: no rashes or lesions noted Neuro General: patient oriented x3 Extrem General: Yes normal to inspection Results AMB Urinalysis, Automated UA Leukoctes 125 Martina/uL Last Edit by Humberto Uribe CMA on 08/29/23 14:4 2 UA Nitrite Positive Last Edit by Humberto Uribe CMA on 08/29/23 14:42 UA Urobilinogen 4 mg/dL Last Edit by Humberto Uribe CMA on 08/29/23 14:4 2 UA Protein 15 mg/dL Last Edit by Humberto Uribe CMA on 08/29/23 14:42 UA pH 5.5 Last Edit by Humberto Uribe CMA on 08/29/23 14:42 UA Blood 0 Bc/uL Last Edit by Humberto Uribe CMA on 08/29/23 14:42 UA Specific [place] 1.030 Last Edit by Humberto Uribe CMA on 08/29/23 14:42 UA Ketone Positive Last Edit by Humberto Uribe CMA on 08/29/23 14:42 UA Bilirubin 2 mg/dL Last Edit by Humberto Uribe CMA on 08/29/23 14:42 UA Glucose 250 mg/dL Last Edit by Humberto Uribe CMA on 08/29/23 14:42 Results Reviewed Results Reviewed: Laboratory Last Values Urine pH (Auto) 5.5 08/29/23 14:40 Specific [place] (Auto) 1.030 08/29/23 14:40 Urine Protein (Auto) 15 mg/dL 08/29/23 14:40 Glucose (UA)(Auto) 250 mg/dL 08/29/23 14:40 Urine Ketones (Auto) Positive 08/29/23 14:40 Urine Blood (Auto) 0 Bc/uL 08/29/23 14:40 Urine Nitrite (Auto) Positive 08/29/23 14:40 Urine Bilirubin (Auto) 2 mg/dL 08/29/23 14:40 Urine Urobilinogen (Auto) 4 mg/dL 08/29/23 14:40 Leukocyte Esterase (Auto) 125 Martina/uL 08/29/23 14:40 Assessment & Plan Assessment & Plan (1) UTI (urinary tract infection): Code(s): N39.0 - Urinary tract infection, site not specified Qualifiers: Hematuria presence: without hematuria Urinary tract infection type: acute cystitis Qualified Code(s): N30.00 - Acute cystitis without hematuria Plan: Sent Rx for uti, also sent note to PCP as pt has glucose and ketones in her urine, has been eating normally. Recommended follow-up with PCP/Urology if sym ptoms persist status post tx. Sent for culture as recurrent UTI. Plan see above Orders: Orders AMB Urinalysis Automated Today Z13.9 - Encounter for screening, unspecified Urine Culture Today N30.00 - Acute cystitis without hematuria Medications: New cefuroxime axetil 500 mg PO Q12H 20 tabs 0RF Coding Level of Care Code Est Pt Level 3 (36100) Diagnoses Acute cystitis without hematuria N30.00 Hematuria presence: without hematuria Urinary tract infection type: acute cystitis
== END 2023-08-29 15:23 | disposition home or self-care (01) ==
PROVIDERS: PCP Physician Assistant; Visit Provider Physician Assistant
DX: N30.00 Acute cystitis without hematuria (principal)
CPT/HCPCS: 81003; 99213

== ENCOUNTER 2023-08-29 15:15 | Outpatient (REF) | payer OTHER, SELFPAY | END 2023-08-29 15:16 | disposition home or self-care (01) | LOC: HO.LAB 15:15 | PROVIDERS: Visit Provider Physician Assistant | DX: N30.00 Acute cystitis without hematuria (principal) | CPT/HCPCS: 87086 ==

== ENCOUNTER 2023-09-06 15:02 | Outpatient (AMB) | payer OTHER, SELFPAY ==
--- NOTE | 2023-09-06 15:21 | MHC.OFFVIS ---
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 Interior Horticulturist Required: No Information Interpreted: clinical only Mechanical Press Operator: Mechanical Press Operator Present Allergies paliperidone [From INVEGA] Allergy (Unknown, Verified 09/06/23 15:25) ANXIETY risperidone [From RISPERDAL] Allergy (Unknown, Verified 09/06/23 15:25) UNKNOWN Medication List - Last Reconciled 09/06/23 by Olesya Dillard CNM cefuroxime axetil 500 mg PO Q12H clonazepam 0.5 mg PO BID PRN meloxicam 15 mg PO DAILY 30 days pentosan polysulfate sodium (Elmiron) 100 mg PO TID 90 days sertraline (Zoloft) 50 mg PO DAILY Is last menstrual period known: Yes Last menstrual period: 09/02/23 Do you need a note to return to daycare/school/sports/work: No HPI HPI UNIFORM FORCE CAPTAIN annual exam: Details: 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 She still uses withdrawal as her method of control she has been having lots of issues with recurrent urinary tract infections she is just finishing up on a stronger antibiotic that was given to her by a same day care practice when the 1st antibiotic seems not to words. She has a hard time figuring out what could be a yeast infection from a urinary tract infection she has a history of interstitial cystitis and so it is also very difficult for her to interpret what the symptoms are she says her primary care provider also put her on medication for that while she has waiting for the urology consult to go through. she has seen Urology in the past. She bought cranberry juice and drinks it but then she remembered that she was told not drink cranberry juice cousin had acid in it and it could affect her interstitial cystitis she has been eating lots of yogurt for the probiotics because of the side effects of getting the runs while on the antibiotics. PFSH Medical History UTI (urinary tract infection) Polyarthralgia Kidney stone Hernia Ovarian cyst Surgical History Hx of hernia repair H/O wisdom tooth extraction Hx of cystoscopy Family History Mother HTN (hypertension) Skin cancer Afib Sister Connective tissue disorder Other Family history of lupus erythematosus Social History Household Members: Spouse Housing: House Alcohol intake: current Alcohol intake frequency: holidays/special occasions only Patient Tobacco Use Status: Never used Tobacco e-Cigarette/Vaping Use: Never Used Second Hand Smoke Exposure: No service: No Current occupational status: employed 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 Cognitive needs: No Hearing needs: No Vision needs: No Female Reproductive History Menstrual Age of Menarche: 11 Duration of menses: 3-5 days Date of last menstrual period: 09/02/23 control method: none Total pregnancies: 0 Date of last pap smear: 09/01/22 (negative,previous pap 2020,negative) History of abnormal pap smear: No Physical Exam Vital Signs: Last Vital Signs BP 110/68 09/06/23 15:25 BMI result Body Mass Index 28.0 Const General: healthy appearing, comfortable, no acute distress, well developed and alert Nutritional Appearance: average body habitus Orientation/consciousness: patient oriented x3 Limitations: no limitations HEENT Head: Yes normocephalic Neck Neck: Yes normal visual inspection Chest Chest palpation & inspection: normal inspection of the chest Breast/axilla inspection: normal inspection of the breasts and normal inspection of the axillae Breast/axilla palpation: normal palpation of the breasts and normal palpation of the axillae Resp Effort & Inspection: normal respiratory effort GI Inspection: Yes normal to inspection, No Abdominal wall edema and No distended Palpation (GI): Soft to palpation and nontender Other: External exam within normal limits vagina pink and moist cervix nulliparous pink smooth moist mobile nontender uterus midposition mobile nontender adnexa nontender not enlarged good tone with Kegel close anatomy of urethra to vagina discussed and why this can contribute to recurrent UTIs if care is not taken. General: Yes bladder normal to palpation External Female Exam: normal external appearance and normal appearance of the urethra Speculum Exam - Vagina: normal appearance of the vagina, normal palpation and normal vaginal discharge Speculum Exam - Cervix: normal appearance of the cervix, normal palpation and nontender Bimanual exam- vagina & uterus: normal bimanual exam, normal palpation, uterine size normal, bladder normal to palpation, consistency normal, normal palpation, uterine mobility normal, uterine shape normal, No Cervical tenderness present, non-tender and no cervical motion tenderness Bimanual Exam- Adnexa, other: normal adnexae, no masses, normal and No adnexal tenderness Neuro General: patient oriented x3 Results Reviewed Results Reviewed: MR#: [id number] : 1985 Acct:[id number] Age/Sex: 36 / F ADM Date: 09/08/22 Loc: HO.US Attending Dr: Amy Nevarez SANITARY PLUMBER Ordering Physician: Olesya Dillard CNM Date of Service: 09/08/22 Procedure(s): US pelvic and transvaginal Accession Number(s): [id number] cc: Olesya Dillard CNM~ EXAMINATION:? US PELVIS CLINICAL INFORMATION:? Dysmenorrhea COMPARISON: 07/27/2015 TECHNIQUE: Ultrasound of the pelvis is performed using both transabdominal and transvaginal transducers along with Doppler. Transvaginal imaging is performed due to inadequate visualization transabdominally. FINDINGS: Uterus: The uterus is anteverted and measures 8.1 x 3.1 x 1.5 cm.? Incidental nabothian cysts. The double wall endometrial thickness is 0.6 mm.? The uterus is smooth in contour and has normal myometrial echogenicity. ? No visible fibroid. Adnexa: Both ovaries are visualized. There is normal color flow to the adnexa. There is no ovarian torsion.? There is no pelvic ascites or fluid collection. Both ovaries measure approximately 10 and 7 mL in volume within normal limits. US/US pelvic and transvaginal IMPRESSION: Unremarkable exam. Dictated By: Kenneth Edwards MD Signed By: <Electronically signed by Kenneth Edwards MD in OV> 09/13/22 1041 DD/ 1415 marshall: Ellen Clark Age/Sex: 36/F Attending: Olesya Dillard CNM : 1985 Submitted by: Olesya Dillard CNM Copies to: Bong Wren PA-C MR #: [id number] Status: DEP REF Collected: 09/01/22 Location: [facility] Received: 09/04/22 Interpretation Satisfactory for evaluation. Negative for intraepithelial lesion or malignancy. HPV mRNA E6/E7: NOT DETECTED This assay detects E6/E7 viral messenger RNA (mRNA) from 14 high-risk HPV types (16, 18, 31, 33, 35, 39, 45, 51, 52, 56, 58, 59, 66, 68) HPV testing performed by [facility], [place], [place]. See reference laboratory pion of the EMR for entire report. Clinical Information LMP: 08/30/22 Previous PAP test: 02/26/20, WNL Material Received ThinPrep-Cervical Copies To Bong Wren PA-C [address] [place] [address] [address]. [address] [place] [address] Olesya Dillard CNM [address] [place] [address] [address]. [address] [place] [address] Electronically Signed By: JENNIFER Reddy (ASCP) 09/25/22 1410 The Pap Test is a screening procedure with the inherent possibility of both false negative and false positive results. Results should be interpreted in the context of historic and current clinical findings. Reliability of the Pap Test is enhanced by performing the test on a regular repetitive basis. Patient: Ellen Clark Age/Sex: 36/F MR#: [id number] Page 1 of 1 Assessment & Plan Assessment & Plan (1) Cervical cancer screening: Comment: 09/01/2022 Pap is negative with negative HPV. Code(s): Z12.4 - Encounter for screening for malignant neoplasm of cervix Category: Medical (2) control counseling: Code(s): Z30.09 - Encounter for other general counseling and advice on contraception Category: Medical (3) Interstitial cystitis: Comment: history of hydrodistention Code(s): N30.10 - Interstitial cystitis (chronic) without hematuria Category: Medical (4) YASSINE (generalized anxiety disorder): Code(s): F41.1 - Generalized anxiety disorder Category: Medical (5) Frequent UTI: Code(s): N39.0 - Urinary tract infection, site not specified Category: Medical Plan External exam within normal limits vagina pink and moist cervix nulliparous pink smooth moist mobile nontender uterus midposition mobile nontender adnexa nontender not enlarged good tone with Kegel close anatomy of urethra to vagina discussed and why this can contribute to recurrent UTIs if care is not taken. -----Discussed in this visit the following: healthy balanced diet, regular and consistent exercise, getting recommended health screens, doing the best she can for her particular health concerns, kegel exercises, pap smear screening and followup recommendations, mammography screening and SBE, normal changes in cycles in her life stage--- . control discussed she is content enough withdrawal but I did some Education about her menstrual cycle and signs and symptoms of ovulation and consider using this knowledge along plan B if she does end up having unintended intercourse around the time of ovulation. Discussed that if she did get at this age it might be a higher risk and need more testing and so she should consider care from the start at [facility] if she did get she asked a question about some sort surgical procedure for sterilization but in brief discussion about what that involves she said she would rather have her get the surgery discussed that this is something to talk about. Recommend following up with Urology as she has an extensive history but also discussed urinating before and after intercourse drinking lots and lots of water even more than usual on hot days like this. In addition discussed really 2 minutes into her body and try to make sure that she empties completely and if not returning to void soon after to ensure complete emptying of the bladder discussed that we are always producing urine and needs to be regularly emptied out. .Discussed the limitations in testing for urinary tract infection and also the normal micro by own of the vagina and vulva but discussed that it is very easy for bacteria to be introduced into the urethra were it can lead to urinary tract infections if not emptied out frequently Orders: Orders CT NG by PCR Today Z11.3 - Encounter for screening for infections with a predominantly sexual mode of transmission Bacterial Vaginosis Panel Today N89.8 - Other specified noninflammatory disorders of vagina Coding Level of Care Code Est Pt Prev Care 18-39y(35089) Diagnoses Cervical cancer screening Z12.4 control counseling Z30.09 Interstitial cystitis N30.10 YASSINE (generalized anxiety disorder) F41.1 Frequent UTI N39.0
[2023-09-06 15:25] VITALS: BP 110/68; BMI 28.0
== END 2023-09-06 16:29 | disposition home or self-care (01) ==
LOC: HO.HWSM 15:02
PROVIDERS: PCP Physician Assistant; Visit Provider Advanced Practice Midwife
DX: Z01.419 Encounter for gynecological examination (general) (routine) without abnormal findings (principal); Z30.09 Encounter for other general counseling and advice on contraception; N30.10 Interstitial cystitis (chronic) without hematuria; F41.1 Generalized anxiety disorder; N39.0 Urinary tract infection, site not specified
CPT/HCPCS: 99395

== ENCOUNTER 2023-09-06 15:02 | Outpatient (REF) | payer OTHER, SELFPAY ==
[2023-09-07 05:03] LABS: CT PCR NOT DETECTED (Not Detect.); NG PCR NOT DETECTED (Not Detect.)
[2023-09-07 13:05] LABS: Bacterial Vaginosis PCR NEGATIVE (Negative); Candida Group PCR NOT DETECTED (Not Detect); Candida glab krusei PCR DETECTED (Not Detect); Trichomonas vaginalis PCR NOT DETECTED (Not Detect)
== END 2023-09-06 15:03 | disposition home or self-care (01) ==
LOC: HO.LAB 15:02
PROVIDERS: PCP Physician Assistant; Visit Provider Advanced Practice Midwife
DX: Z11.3 Encounter for screening for infections with a predominantly sexual mode of transmission (principal); N89.8 Other specified noninflammatory disorders of vagina; N30.10 Interstitial cystitis (chronic) without hematuria
CPT/HCPCS: 0352U; 0353U

== ENCOUNTER 2023-09-13 14:42 | Outpatient (AMB) | payer OTHER, SELFPAY ==
--- NOTE | 2023-09-13 14:44 | AM.OFFWIN_ITS ---
Intake Vital Signs 09/13/23 14:46 Height 5 ft 4 in Weight 161 lb BMI 27.6 BP 110/78 Blood Pressure Location Lt brachial Position Sitting Pulse 73 Pulse Source Pulse Oximeter Temp 98.3 F Temp Source Oral Pulse Oximetry (%) 98 Oxygen Delivery Method Room Air Intake Visit Reasons: EP eye infection Intake Note: pt is here c/o bilateral eye infection. Symptoms have persisted for several weeks Patient Tobacco Use Status: Never used Tobacco Allergies paliperidone [From INVEGA] Allergy (Unknown, Verified 09/13/23 14:45) ANXIETY risperidone [From RISPERDAL] Allergy (Unknown, Verified 09/13/23 14:45) UNKNOWN Do you need a note to return to daycare/school/sports/work: No HPI HPI Comments History of Present Illness Details 37 y/o female patient who presents to [facility] in clinic with c/o dry, burning and itchy eyes x 1 month. Pt wears contact lens (Monthly). She has not s een her eye doctor for few years now. Denies vision changes. Denies eye pain, headaches, or dizziness. PFSH Medical History UTI (urinary tract infection) Polyarthralgia Kidney stone Hernia Ovarian cyst Surgical History Hx of hernia repair H/O wisdom tooth extraction Hx of cystoscopy Family History Mother HTN (hypertension) Skin cancer Afib Sister Connective tissue disorder Other Family history of lupus erythematosus Social History Household Members: Spouse Housing: House Alcohol intake: current Alcohol intake frequency: holidays/special occasions only Patient Tobacco Use Status: Never used Tobacco e-Cigarette/Vaping Use: Never Used Second Hand Smoke Exposure: No service: No Current occupational status: employed 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 Cognitive needs: No Hearing needs: No Vision needs: No Female Reproductive History Menstrual Age of Menarche: 11 Review of Systems Const All systems reviewed & are unremarkable except as noted in HPI and below Physical Exam Vital Signs: Last Vital Signs Temp 98.3 F 09/13/23 14:46 Pulse 73 09/13/23 14:46 BP 110/78 09/13/23 14:46 Pulse Ox 98 09/13/23 14:46 Oxygen Delivery Method Room Air 09/13/23 14:46 BMI result Body Mass Index 27.6 Const General: comfortable and no acute distress Orientation/consciousness: patient oriented x3 HEENT Head: Yes normocephalic Eyes Eyelids: Yes eyelids normal Conjunctivae: conjunctivae normal Sclerae: sclerae normal Corneas: corneas normal Pupils: Equal, round and reactive pupils present EOM: EOMs intact bilaterally Direct Ophthalmoscopy: normal light reflex Neuro General: patient oriented x3, gait normal and moves all extremities Cranial nerves: Yes Equal, round and reactive pupils present Psych Speech and movement: Normal speech and movement present Assessment & Plan Assessment & Plan (1) Allergic conjunctivitis: Code(s): H10.10 - Acute atopic conjunctivitis, unspecified eye Qualifiers: Laterality: bilateral Qualified Code(s): H10.13 - Acute atopic conjunctivitis, bilateral Plan: Advised to make a f/u Appointment with Eye doctor Change contact lens monthly. Wash hands before applying Lens. Maintain a good eye hygiene Take Zyrtec as directed (AM and PM). Medications: New ketotifen fumarate 0.025%(0.035%) (Zaditor) 1 drp ophthalmic (eye) Q8H 5 mL 1RF H10.13 - Acute atopic conjunctivitis, bilateral cetirizine (Zyrtec) 10 mg PO DAILY PRN 90 tabs 0RF allergy symptoms H10.13 - Acute atopic conjunctivitis, bilateral Coding Level of Care Code Est Pt Level 3 (25993) Diagnoses Allergic conjunctivitis of both eyes H10.13 Laterality: bilateral Time Spent (min) 15
[2023-09-13 14:46] VITALS: BP 110/78; PULSE 73; TEMP 36.8; O2SAT 98; BMI 27.6
== END 2023-09-13 16:03 | disposition home or self-care (01) ==
PROVIDERS: PCP Physician Assistant; Visit Provider Nurse Practitioner Family
DX: H10.13 Acute atopic conjunctivitis, bilateral (principal)
CPT/HCPCS: 99213

== ENCOUNTER 2023-10-24 15:04 | Outpatient (AMB) | payer OTHER, SELFPAY ==
[2023-10-24 15:06] VITALS: BP 100/78; PULSE 84; O2SAT 95; BMI 27.5
--- NOTE | 2023-10-24 15:06 | A.OFFPC_ITS ---
Vital Signs 10/24/23 15:06 Height 5 ft 4 in Weight 160 lb BMI 27.5 BP 100/78 Blood Pressure Location Lt brachial Position Sitting Pulse 84 Pulse Source Pulse Oximeter Pulse Oximetry (%) 95 Oxygen Delivery Method Room Air Intake Visit Reasons: UTI F/U Statistical Programmer Required: No Accompanied by: Self / Same As Patient Allergies paliperidone [From INVEGA] Allergy (Unknown, Verified 10/24/23 15:54) ANXIETY risperidone [From RISPERDAL] Allergy (Unknown, Verified 10/24/23 15:54) UNKNOWN Medication List - Last Reconciled 10/24/23 by Bong Wren PA-C cetirizine (Zyrtec) 10 mg PO DAILY PRN clonazepam 0.5 mg PO BID PRN dextroamphetamine-amphetamine 20 mg 1 tab PO BID ketotifen fumarate 0.025%(0.035%) (Zaditor) 1 drp ophthalmic (eye) Q8H meloxicam 15 mg PO DAILY 30 days sertraline (Zoloft) 50 mg PO DAILY Tobacco use date assessed: 10/24/23 Dental Screening Dental Screen Date: 10/24/23 Did you have a dental visit in the last 12 months?: No Did you have a dental problem in the last 6 months where you did not have access to dental care?: No Was dental information given to patient?: No (No dental insurance) HPI UTI F/U HPI Details Patient is a 37-year-old female here today for follow-up visit. She reports being seen at urgent care about a month ago for acute UTI was treated with antibiotics. Now feeling better with less dysuria and pelvic discomfort. Did discuss preventative ways to reduce recurrent UTI patient agrees and understands preventative measures. Today's urinalysis without any signs of recurrent UTI. [facility] Medical History UTI (urinary tract infection) Polyarthralgia Kidney stone Hernia Ovarian cyst Surgical History Hx of hernia repair H/O wisdom tooth extraction Hx of cystoscopy Family History Mother HTN (hypertension) Skin cancer Afib Sister Connective tissue disorder Other Family history of lupus erythematosus Social History Household Members: Spouse Housing: House Alcohol intake: current Alcohol intake frequency: holidays/special occasions only Patient Tobacco Use Status: Never used Tobacco e-Cigarette/Vaping Use: Never Used Second Hand Smoke Exposure: No service: No Current occupational status: employed 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 1. Little interest or pleasure in doing things: nearly every day 2. Feeling down, depressed, or hopeless: nearly every day 3. Trouble falling or staying asleep, or sleeping too much: nearly every day 4. Feeling tired or having little energy: nearly every day 5. Poor appetite or overeating: nearly every day 6. Feeling bad about yourself - or that you are a failure or have let yourself or your family down: nearly every day 7. Trouble concentrating on things, such as reading the newspaper or watching television: nearly every day 8. Moving or speaking so slowly that other people could have noticed. Or the opposite - being so fidgety or restless that you have been moving around a lot more than usual: more than half the days 9. Thoughts that you would be better off or of hurting yourself in some way: more than half the days Total score: 25 54909 - PHQ-9 Billing: Yes Source: Developed by Drs. Vimal Chang, Arely Pace, Noah Bonilla and colleagues, with an educational jaime from [employer]. Thrive Questionnaire Date Thrive assessed: 10/24/23 I am a: Patient What is your living situation today?: I have a steady place to live Within the past 12 months, did the food you bought not last and you didn't have the money to get more?: Never true Within the past 12 months, did you worry whether your food would run out before you got money to buy more?: Never true Do you have trouble paying for medicines?: No Do you have trouble getting transportation to medical appointments?: No Do you have trouble paying your heating and electricity bill?: No Do you have trouble taking care of your child, family member or friend?: No Do you have trouble with day-to-day activities such as bathing, preparing meals, shopping, managing finances, etc.?: No Are you currently unemployed and looking for a job?: No Are you interested in more education?: No Please select the resources that you would like help with: None Currently or been in a relationship where the following occur: No concerns reported THRIVE Score: 0 AUDIT C Alcohol Use Questionnaire (AUDIT-C) 1. How often do you have a drink containing alcohol?: Monthly or less 2. How many drinks containing alcohol do you have on a typical day when you are drinking?: 1 or 2 3. How often do you have six or more drinks on one occasion?: Never Total Score: 1 YASSINE-7 AMB Questionnaire YASSINE-7 Date YASSINE - 7 assessed: 10/24/23 Feeling nervous, anxious, or on edge: 3 = Nearly every day Not being able to stop or control worryin = Nearly every day Worrying too much about different things: 3 = Nearly every day Trouble relaxin = Nearly every day Being so restless that it is hard to sit still: 2 = More than half the days Becoming easily annoyed or irritable: 3 = Nearly every day Feeling afraid as if something awful might happen: 3 = Nearly every day Total YASSINE-7 score (0-4 normal; 5-9 mild; 10-14 moderate; 15-21 severe): 20 Source: Developed by Drs. Vimal Chang, Arely Pace, Noah Bonilla and colleagues, with an educational jaime from [employer]. YASSINE-7 Assessment Billing YASSINE-7 Assessment Tool: YASSINE-7 Assessment 51215 Review of Systems Const Denies headache(s) Eyes Denies loss of vision ENT Denies vertigo, Denies dizziness, Denies headache(s) and Denies sore throat Card Denies chest pain, Denies leg edema and Denies lightheadedness Resp Denies cough, Denies hemoptysis and Denies wheezing GI Denies abdominal pain, Denies melena, Denies constipation, Denies diarrhea and Denies vomiting Denies urinary frequency, Denies dysuria and Denies urinary urgency Musc Denies arthralgias, Denies joint swelling, Denies numbness and Denies tingling Neuro Denies Abnormal speech present, Denies behavioral changes, Denies vertigo, Denies dizziness, Denies headache(s), Denies loss of vision, Denies memory loss, Denies numbness and Denies tingling Psych Denies anxiety, Denies behavioral changes, Denies depression, Denies memory loss and Denies panic attacks Aris/Lymph Denies easy bleeding and Denies easy bruising Aller/Immun Denies wheezing Physical exam (Primary Care) Vital Signs: Last Vital Signs Pulse 84 10/24/23 15:06 BP 100/78 10/24/23 15:06 Pulse Ox 95 10/24/23 15:06 Oxygen Delivery Method Room Air 10/24/23 15:06 BMI result Body Mass Index 27.5 Tobacco/Smoking Status: Tobacco use Status Tobacco use date assessed 10/24/23 10/24/23 15:33 Patient Tobacco Use Status Never used Tobacco 10/24/23 15:08 e-Cigarette/Vaping Use Never Used 10/24/23 15:08 PHQ-9: PHQ-9 Score PHQ-9: Total score 25 10/24/23 15:54 Thrive Assessment: Date of Thrive Assessment Date Thrive assessed 10/24/23 10/24/23 15:29 Currently or been in a relationship where the following occur: No concerns reported Const General: healthy appearing, no acute distress, alert and awake Nutritional Appearance: well nourished Orientation/consciousness: oriented to person, oriented to place and oriented to time HENMT Ears: TM's normal bilaterally General nose exam: Normal nasal mucous membranes and turbinates present Eyes Conjunctivae: conjunctivae normal Sclerae: sclerae normal Pupils: Equal, round and reactive pupils present Neck Neck: Yes no lymphadenopathy and Yes no JVD Thyroid: Thyroid normal Carotids: no bruits Resp Effort & Inspection: normal respiratory effort and not tachypneic Auscultation: no crackles, no rales, no rhonchi and no wheezes Cardio Rate: regular rate Rhythm: regular rhythm Heart sounds: no murmurs and normal S1 and S2 GI Palpation (GI): Soft to palpation, nontender, no hepatomegaly and no splenomegaly Auscultation: normal bowel sounds Skin General skin exam: no rashes or lesions noted and dry skin Neuro General: oriented to person, oriented to place and oriented to time Cranial nerves: Yes Equal, round and reactive pupils present Speech: No Abnormal speech present Gait exam (Neuro): Normal gait present Motor exam (neuro): no tremor noted Extrem Right upper extremity: full ROM Left upper extremity: full ROM Right lower extremity: full ROM; no edema Left lower extremity: full ROM; no edema Psych Mental Status: mental status grossly normal Speech and movement: Normal speech and movement present Affect: normal affect Attitude: cooperative Thought process: Normal thought process present Results AMB Urinalysis, Automated UA Leukoctes 0 Martina/uL Last Edit by HORACE Berger on 10/24/23 15:32 UA Nitrite Negative Last Edit by HORACE Berger on 10/24/23 15:32 UA Urobilinogen 0 mg/dL Last Edit by HORACE Berger on 10/24/23 15:32 UA Protein 15 mg/dL Last Edit by HORACE Berger on 10/24/23 15:32 UA pH 6.5 Last Edit by HORACE Berger on 10/24/23 15:32 UA Blood 0 Bc/uL Last Edit by HORACE Berger on 10/24/23 15:32 UA Specific [place] 1.015 Last Edit by HORACE Berger on 10/24/23 15:32 UA Ketone Negative Last Edit by HORACE Berger on 10/24/23 15:32 UA Bilirubin 0 mg/dL Last Edit by HORACE Berger on 10/24/23 15:32 UA Glucose 0 mg/dL Last Edit by HORACE Berger on 10/24/23 15:32 Results Reviewed Results Reviewed: Laboratory Last Values Urine pH (Auto) 6.5 10/24/23 15:30 Specific [place] (Auto) 1.015 10/24/23 15:30 Urine Protein (Auto) 15 mg/dL 10/24/23 15:30 Glucose (UA)(Auto) 0 mg/dL 10/24/23 15:30 Urine Ketones (Auto) Negative 10/24/23 15:30 Urine Blood (Auto) 0 Bc/uL 10/24/23 15:30 Urine Nitrite (Auto) Negative 10/24/23 15:30 Urine Bilirubin (Auto) 0 mg/dL 10/24/23 15:30 Urine Urobilinogen (Auto) 0 mg/dL 10/24/23 15:30 Leukocyte Esterase (Auto) 0 Martina/uL 10/24/23 15:30 Assessment and Plan Assessment & Plan (1) Frequent UTI: Code(s): N39.0 - Urinary tract infection, site not specified Plan: As per HPI. Treated with antibiotics and now feeling much better. Today's urinalysis without any recurrent UTI. Did discuss preventative measures to reduce recurrent C of UTIs. Orders: Orders AMB Urinalysis Automated 10/24/23 N39.0 - Urinary tract infection, site not specified Coding Level of Care Code Est Pt Level 3 (39806) Diagnoses Frequent UTI N39.0 Additional Codes YASSINE-7 Assessment Billing - YASSINE-7 Assessment Tool: YASSINE-7 Assessment 95797 ([id number])
== END 2023-10-24 16:04 | disposition home or self-care (01) ==
PROVIDERS: PCP Physician Assistant; Visit Provider Physician Assistant
DX: N39.0 Urinary tract infection, site not specified (principal)
CPT/HCPCS: 81003; 99213

== ENCOUNTER 2024-02-01 13:48 | Outpatient (AMB) | payer OTHER, SELFPAY ==
--- NOTE | 2024-02-01 13:53 | MHC.OFFVIS ---
Intake Visit Reasons: IC? Recurrent UTIs Intake Note: Patient is present for IC? RECURRENT UTI'S Urology Medication:NONE Antibiotic Allergy:NONE Blood Thinner:NONE Rn L And D Required: No Allergies paliperidone [From INVEGA] Allergy (Unknown, Verified 02/18/24 13:52) ANXIETY risperidone [From RISPERDAL] Allergy (Unknown, Verified 02/18/24 13:52) UNKNOWN HPI Comments Details: Ellen is a 38-year-old female who has had recurrent bladder and vaginal infections, h/o left kidney stone. symptoms not c/w IC. Plan renal bladder US fu post PFSH Medical History UTI (urinary tract infection) Polyarthralgia Kidney stone Hernia Ovarian cyst Surgical History Hx of hernia repair H/O wisdom tooth extraction Hx of cystoscopy Family History Mother HTN (hypertension) Skin cancer Afib Sister Connective tissue disorder Other Family history of lupus erythematosus Social History (Updated 02/18/24 @ 14:53 by Bong Wren PA-C) Household Members: Spouse Housing: House Alcohol intake: current Alcohol intake frequency: holidays/special occasions only Patient Tobacco Use Status: Never used Tobacco e-Cigarette/Vaping Use: Never Used Second Hand Smoke Exposure: No service: No Current occupational status: employed 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 Cognitive needs: No Hearing needs: No Vision needs: No Female Reproductive History Menstrual Age of Menarche: 11 Review of Systems Const All systems reviewed & are unremarkable except as noted in HPI and below Reports no additional complaints Eyes Reports no additional complaints ENT Reports no additional complaints Card Reports no additional complaints Resp Reports no additional complaints GI Reports no additional complaints Reports as per HPI Musc Reports no additional complaints Skin/Breast Reports system reviewed and no additional complaints, except as documented Neuro Reports no additional complaints Psych Reports no additional complaints Endo Reports no additional complaints Aris/Lymph Reports no additional complaints Aller/Immun Reports no additional complaints Physical Exam Const General: cooperative, healthy appearing and no acute distress Orientation/consciousness: patient oriented x3 HEENT Head: Yes normal to inspection, Yes normocephalic and Yes atraumatic Eyes Conjunctivae: conjunctivae normal Neck Neck: Yes normal visual inspection and Yes trachea midline Chest Chest palpation & inspection: normal inspection of the chest Resp Effort & Inspection: normal respiratory effort Cardio Rate: regular rate GI Inspection: Yes normal to inspection Skin General skin exam: no rashes or lesions noted Neuro General: patient oriented x3 Extrem General: No edema Psych Appearance: grossly normal Results AMB Urinalysis, Automated UA Leukoctes 0 Martina/uL Last Edit by HORACE Gil on 02/01/24 14:03 UA Nitrite Negative Last Edit by Summer Zamorano [facility] [place] on 02/01/24 14:03 UA Urobilinogen 3.5 mg/dL Last Edit by Summer Zamorano CCM on 02/01/24 14:03 UA Protein 15 mg/dL Last Edit by Summer Zamorano [facility] [place] on 02/01/24 14:03 UA pH 6.0 Last Edit by Summer Zamorano [facility] [place] on 02/01/24 14:03 UA Blood 10 Bc/uL Last Edit by Summer Zamorano [facility] [place] on 02/01/24 14:03 UA Specific [place] 1.030 Last Edit by Summer Zamorano [facility] [place] on 02/01/24 14:03 UA Ketone Negative Last Edit by Summer Zamorano [facility] [place] on 02/01/24 14:03 UA Bilirubin 0 mg/dL Last Edit by Summer Zamorano [facility] [place] on 02/01/24 14:03 UA Glucose 0 mg/dL Last Edit by Summer Zamorano [facility] [place] on 02/01/24 14:03 Results Reviewed Results Reviewed: Laboratory Last Values Urine pH (Auto) 6.0 02/01/24 14:01 Specific [place] (Auto) 1.030 02/01/24 14:01 Urine Protein (Auto) 15 mg/dL 02/01/24 14:01 Glucose (UA)(Auto) 0 mg/dL 02/01/24 14:01 Urine Ketones (Auto) Negative 02/01/24 14:01 Urine Blood (Auto) 10 Bc/uL 02/01/24 14:01 Urine Nitrite (Auto) Negative 02/01/24 14:01 Urine Bilirubin (Auto) 0 mg/dL 02/01/24 14:01 Urine Urobilinogen (Auto) 3.5 mg/dL 02/01/24 14:01 Leukocyte Esterase (Auto) 0 Martina/uL 02/01/24 14:01 Assessment & Plan Assessment & Plan (1) Frequent UTI: Code(s): N39.0 - Urinary tract infection, site not specified Category: Medical Plan Renal ultrasound follow-up post. Orders: Orders US retroperitoneal comp 02/01/24 N39.0 - Urinary tract infection, site not specified AMB Urinalysis Automated 02/01/24 Z13.9 - Encounter for screening, unspecified Patient Instructions: The patient had an opportunity to ask questions regarding treatment plan. The patient expressed understanding and agreement with the above treatment plan. The patient is aware they should contact our office by phone for worsening of their current condition or the appearance of new symptoms. Compliance is encouraged with any medications and followup testing that is ordered. It is a privilege to be allowed the opportunity to participate in the urologic care of your patient. If you have any questions or concerns regarding treatment for the above conditions please do not hesitate to contact me. The office telephone contact is [phone]. This note is constructed in part using voice recognition software. While every effort has been made to ensure accuracy instructional coordinator errors may have been included. Yours sincerely, Agatha Dominguez MD Coding Level of Care Code New Pt Level 3 (59960) Diagnoses Frequent UTI N39.0
== END 2024-02-01 14:43 | disposition home or self-care (01) ==
PROVIDERS: PCP Physician Assistant; Visit Provider Urology
DX: N39.0 Urinary tract infection, site not specified (principal)
CPT/HCPCS: 99203

== ENCOUNTER → 2024-02-01 13:48 | Outpatient (BNVA) | payer OTHER, SELFPAY | PROVIDERS: PCP Physician Assistant; Visit Provider Urology | DX: N39.0 Urinary tract infection, site not specified (principal) | CPT/HCPCS: 81003 ==

== ENCOUNTER 2024-02-18 13:38 | Outpatient (REF) | payer OTHER, SELFPAY ==
--- NOTE | ~2024-02-18 | XR_ITS ---
EXAMINATION: XR LUMBAR SPINE CLINICAL INFORMATION: Low back pain, unspecified M54.50. COMPARISON: None available. TECHNIQUE: Three views of the lumbosacral spine. FINDINGS: Normal vertebral body alignment. The lumbar lordosis is maintained. No acute fracture or subluxation. No loss of vertebral body or intervertebral disc height. Tiny anterior endplate osteophytes at L1-L2 and L2-L3. No concerning lytic or blastic osseous lesion. XR/XR lumbar spine 2-3V IMPRESSION: Minimal degenerative disc disease at L1-L2 and L2-L3. Electronically signed by: Elbert Newby MD 04/02/2024 11:50 AM [facility]
== END 2024-02-18 13:39 | disposition home or self-care (01) ==
LOC: HO.XRAY 13:38
PROVIDERS: PCP Physician Assistant; Visit Provider Physician Assistant
DX: Z00.00 Encounter for general adult medical examination without abnormal findings (principal); Z23 Encounter for immunization; F33.1 Major depressive disorder, recurrent, moderate; M54.50 Low back pain, unspecified; R76.8 Other specified abnormal immunological findings in serum; M79.7 Fibromyalgia
CPT/HCPCS: 72100; 90471; 90656; 96127

== ENCOUNTER 2024-02-18 13:38 | Outpatient (AMB) | payer OTHER, SELFPAY ==
[2024-02-18 13:51] VITALS: BP 112/72; PULSE 96; O2SAT 95; BMI 28.5
--- NOTE | 2024-02-18 13:51 | MHC.PC.OV ---
Vital Signs 02/18/24 13:51 Height 5 ft 4 in Weight 166 lb BMI 28.5 BP 112/72 Blood Pressure Location Lt brachial Position Sitting Pulse 96 Pulse Source Pulse Oximeter Pulse Oximetry (%) 95 Oxygen Delivery Method Room Air Intake Visit Reasons: Annual Exam Intake Note: Patient is here today for a physical. 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 Patient has a past medical history significant for ovarian cyst, obesity,? YASSINE, OCD and Autism spectrum. Concerns--> she continues to have lower back pain and stiffness. She has used meloxicam in the past which she has found helpful. She is interested in getting x-ray. Of note has had rheumatology testing in the past and was positive for SAJI. .. .. Polyarthralgia: Has started meloxicam which she reports is helpful for her joint pains. Has seen rheumatology and was told most of her pains are related to her fibromyalgia. She feels she has some hypermobility in her joints and feels she has a diagnosis of a Ehnlos syndrome. We did discuss the possibility restarting physical therapy to help work on muscle strengthening. ,.. YASSINE/ADHD: She continues to follow with mental health psychiatrist who manages her mental health medications. Does use clonazepam on a very limited p.r.n. basis. Does use stimulant ADHD medication which has been helpful for her attention and focus. Vaccines:? Up-to-date COVID vaccine, UTD With Tdap.UTD with FLu vaccine . .. BLOCKMAN: Patient is followed by distribution supervisor specialist in his up-to-date with [facility] Medical History UTI (urinary tract infection) Polyarthralgia Kidney stone Hernia Ovarian cyst Surgical History Hx of hernia repair H/O wisdom tooth extraction Hx of cystoscopy Family History Mother HTN (hypertension) Skin cancer Afib Sister Connective tissue disorder Other Family history of lupus erythematosus Social History (Updated 02/18/24 @ 14:53 by Bong Wren PA-C) Household Members: Spouse Housing: House Alcohol intake: current Alcohol intake frequency: holidays/special occasions only Patient Tobacco Use Status: Never used Tobacco e-Cigarette/Vaping Use: Never Used Second Hand Smoke Exposure: No service: No Current occupational status: employed 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 1. Little interest or pleasure in doing things: several days 2. Feeling down, depressed, or hopeless: nearly every day 3. Trouble falling or staying asleep, or sleeping too much: nearly every day 4. Feeling tired or having little energy: more than half the days 5. Poor appetite or overeating: several days 6. Feeling bad about yourself - or that you are a failure or have let yourself or your family down: several days 7. Trouble concentrating on things, such as reading the newspaper or watching television: several days 8. Moving or speaking so slowly that other people could have noticed. Or the opposite - being so fidgety or restless that you have been moving around a lot more than usual: more than half the days 9. Thoughts that you would be better off or of hurting yourself in some way: several days Total score: 15 Depression Screening Interpretation: Positive Depression Screening Follow-up: Existing condition and In treatment Depression Screening Done: Yes 29331 - PHQ-9 Billing: Yes Source: Developed by Drs. Vimal Chang, Arely Pace, Noah Bonilla and colleagues, with an educational jaime from [employer]. Thrive Questionnaire Date Thrive assessed: 02/18/24 I am a: Patient What is your living situation today?: I have a steady place to live Within the past 12 months, did the food you bought not last and you didn't have the money to get more?: Never true Within the past 12 months, did you worry whether your food would run out before you got money to buy more?: Never true Do you have trouble paying for medicines?: No Do you have trouble getting transportation to medical appointments?: No Do you have trouble paying your heating and electricity bill?: No Do you have trouble taking care of your child, family member or friend?: No Do you have trouble with day-to-day activities such as bathing, preparing meals, shopping, managing finances, etc.?: No Are you currently unemployed and looking for a job?: No Are you interested in more education?: No Please select the resources that you would like help with: None Currently or been in a relationship where the following occur: No concerns reported THRIVE Score: 0 YASSINE-7 AMB Questionnaire YASSINE-7 Date YASSINE - 7 assessed: 02/18/24 Feeling nervous, anxious, or on edge: 2 = More than half the days Not being able to stop or control worryin = More than half the days Worrying too much about different things: 2 = More than half the days Trouble relaxin = More than half the days Being so restless that it is hard to sit still: 1 = Several days Becoming easily annoyed or irritable: 2 = More than half the days Feeling afraid as if something awful might happen: 2 = More than half the days Total YASSINE-7 score (0-4 normal; 5-9 mild; 10-14 moderate; 15-21 severe): 13 Source: Developed by Drs. Vimal Chang, Arely Pace, Noah Bonilla and colleagues, with an educational jaime from [employer]. YASSINE-7 Assessment Billing YASSINE-7 Assessment Tool: YASSINE-7 Assessment 39143 Review of Systems Const Denies body aches, Denies chills, Denies excessive sweating, Denies fatigue, Denies fever(s) and Denies headache(s) Eyes Denies blurry vision ENT Denies dysphagia, Denies vertigo, Denies dizziness, Denies headache(s), Denies hearing loss and Denies tinnitus Card Denies chest pain, Denies chest pain with activity, Denies syncope, Denies irregular heart rhythm and Denies dyspnea Resp Denies chest congestion, Denies cough, Denies hemoptysis, Denies dyspnea and Denies wheezing GI Denies abdominal pain, Denies melena, Denies hematochezia, Denies coffee ground emesis, Denies dysphagia, Denies diarrhea, Denies nausea and Denies vomiting Denies urinary frequency, Denies dysuria, Denies urinary hesitancy and Denies urinary urgency Musc Denies arthralgias, Denies limited range of motion, Denies muscle cramps and Denies muscle weakness Skin/Breast Denies rash and Denies skin ulcer Neuro Denies Abnormal speech present, Denies confusion, Denies vertigo, Denies dizziness, Denies syncope, Denies headache(s), Denies memory loss and Denies seizure-like activity Psych Denies anxiety, Denies confusion, Denies depression, Denies memory loss, Denies panic attacks and Denies paranoia Endo Denies excessive sweating, Denies fatigue, Denies flushing, Denies polydipsia and Denies polyuria Aller/Immun Denies wheezing Physical exam (Primary Care) Vital Signs: Last Vital Signs Pulse 96 02/18/24 13:51 BP 112/72 02/18/24 13:51 Pulse Ox 95 02/18/24 13:51 Oxygen Delivery Method Room Air 02/18/24 13:51 BMI result Body Mass Index 28.5 Tobacco/Smoking Status: Tobacco use Status Tobacco use date assessed 10/24/23 02/18/24 13:52 Patient Tobacco Use Status Never used Tobacco 02/18/24 14:53 e-Cigarette/Vaping Use Never Used 02/18/24 14:53 PHQ-9: PHQ-9 Score PHQ-9: Total score 15 02/18/24 14:54 Depression Screening Interpretation: Positive Depression Screening Follow-up: Existing condition and In treatment Thrive Assessment: Date of Thrive Assessment Date Thrive assessed 02/18/24 02/18/24 14:04 Currently or been in a relationship where the following occur: No concerns reported Const General: cooperative, comfortable, no acute distress, alert and awake; No confusion Orientation/consciousness: oriented to person, oriented to place, patient oriented x3 and No confusion HENMT Head: Yes normocephalic Ears: external ears normal and TM's normal bilaterally Face and sinus: No sinus tenderness Mouth: Normal oral and palatal mucosa present and tongue normal Teeth and gingiva: dentition normal and gingiva normal Throat: Yes posterior oropharynx normal, Yes tonsils normal and Yes uvula midline Eyes Conjunctivae: conjunctivae normal Sclerae: sclerae normal Pupils: Equal, round and reactive pupils present EOM: EOMs intact bilaterally Direct Ophthalmoscopy: No no photophobia Neck Neck: Yes no lymphadenopathy, No tender and Yes no JVD Thyroid: Thyroid normal Carotids: no bruits Chest Chest palpation & inspection: no tenderness Resp Effort & Inspection: normal respiratory effort, no audible wheezes, not labored and no stridor Auscultation: no crackles, no rales, no rhonchi and no wheezes Cardio Jugular venous distension: no JVD Rate: regular rate, not bradycardic and not tachycardic Rhythm: regular rhythm Bruits: no carotid bruits Peripheral pulses: Peripheral pulses 2+ throughout GI Inspection: Yes normal to inspection, No abdominal wall ecchymosis and No visible herniation Palpation (GI): Soft to palpation, nontender, no guarding, not rigid and No hepatosplenomegaly present Auscultation: normoactive bowel sounds General: Yes no CVA tenderness Back/Spine/Pelvis Back: no CVA tenderness and No back tenderness Cervical Spine: cervical ROM normal Thoracic/Lumbar Spine: thoracic and lumbar spine normal to inspection, straight leg raise negative bilaterally, No thoraco-lumbar ROM limited and No lumbar spinal tenderness Skin Lesions: no lesions Rashes: no rashes Wounds: no wounds Neuro General: oriented to person, oriented to place, patient oriented x3, CN's II-XI intact bilaterally and No confusion Cranial nerves: Yes Equal, round and reactive pupils present and Yes Normal accommodation reflex present Cognition (Neuro): normal cognition Speech: No Abnormal speech present Gait exam (Neuro): Normal gait present Motor exam (neuro): 5/5 motor strength present throughout Extrem Right upper extremity: full ROM; no cyanosis Left upper extremity: full ROM; no cyanosis Right lower extremity: no edema Left lower extremity: no edema Psych Appearance: grossly normal Mental Status: mental status grossly normal Affect: normal affect Attitude: cooperative Thought process: Normal thought process present Office Procedures Flu Questionnaire Does the patient have a severe egg allergy?: No Does the patient have severe life threatening allergies?: No Does the patient have a fever or illness today?: No Has the patient ever had Guillain-[place] Syndrome?: No Has the patient ever had any past reaction to a flu shot?: No Immunizations Fluarix Triv 3832-0532 (PF) 45 mcg (15 mcg x 3)/0.5 mL IM syringe Performing Provider: Bong Wren PA-C [facility] Administered by: HORACE Berger on 02/18/24 14:08 Dose Route Admin Location Dispensed Lot Number Expiration Date NDC Docket Specialist 0.5 mL IM Left Deltoid 0.5 mL [id number] 09/16/23 [id number] [employer] VIS Given Date VIS Provided VIS Publication Date 02/18/24 Single Vaccine 20 Eligibility Eligibility Date Funding Source Not [facility] Eligible 02/18/24 Private Coding Level of Care Code Est Pt Prev Care 18-39y(30573) Diagnoses Annual physical exam Z00.00 MDD (major depressive disorder), recurrent episode, moderate F33.1 Lumbar back pain M54.50 SAJI positive R76.8 Fibromyalgia M79.7 Additional Codes YASSINE-7 Assessment Billing - YASSINE-7 Assessment Tool: YASSINE-7 Assessment 03599 ([id number]) PHQ-9 - 40693 - PHQ-9 Billing: Yes ([id number]) Assessment & Plan Assessment & Plan (1) Annual physical exam: Code(s): Z00.00 - Encounter for general adult medical examination without abnormal findings Category: Medical Plan: As per HPI (2) MDD (major depressive disorder), recurrent episode, moderate: Code(s): F33.1 - Major depressive disorder, recurrent, moderate Category: Medical Plan: Patient's PHQ-9 score positive for major depressive disorder which has been existing condition for her. She continues to speak with a mental health therapist and a psychiatrist whom manage her mental health medications. (3) Lumbar back pain: Code(s): M54.50 - Low back pain, unspecified Category: Medical Plan: As per HPI patient continues to have chronic low back pain and stiffness. She is interested in getting an x-ray to evaluate her lower back. She does have history of ? Fibromyalgia to which she does stretches and uses meloxicam with good effect on reducing her pain. (4) SAJI positive: Code(s): R76.8 - Other specified abnormal immunological findings in serum Category: Medical Plan: As per HPI patient has seen Rheumatology in the past and was told that most of her pains were related to a fibromyalgia diagnosis. (5) Fibromyalgia: Code(s): M79.7 - Fibromyalgia Category: Medical Plan: As above Orders: Orders Influenza [id number] Immunization 02/18/24 Z23 - Encounter for immunization XR lumbar spine 2-3V 02/18/24 M54.50 - Low back pain, unspecified Medications: Refilled meloxicam 15 mg PO DAILY 30 tabs 4RF 30 days M25.50 - Pain in unspecified joint
== END 2024-02-18 15:10 | disposition home or self-care (01) ==
PROVIDERS: PCP Physician Assistant; Visit Provider Physician Assistant
DX: Z00.00 Encounter for general adult medical examination without abnormal findings (principal); F33.1 Major depressive disorder, recurrent, moderate; M54.50 Low back pain, unspecified; R76.8 Other specified abnormal immunological findings in serum; M79.7 Fibromyalgia

== ENCOUNTER 2024-04-21 14:07 | Outpatient (REF) | payer OTHER, SELFPAY ==
--- OUTSIDE RECORDS SUMMARY | 2024-04-21 15:47 | XMS_ITS | Clinical Summary ---
Author Organization [facility] it Address [address] [place] [address] Care Team Providers Care Supervisor Bindery Name Role Phone Unavailable Primary Care Provider Unavailabl e Social History Tobacco Use Types Packs/Day Years Used Date Smoking Tobacco: Never Assessed Sex and Gender Information Value Date Recorded Sex Assigned at Not on file Gender Identity Not on file Sexual Orientation Not on file Plan of Treatment Health Maintenance Due Date Last Done Comments DTaP,Tdap,and Td Vaccines (1 - Tdap) 11/26/2003 Hepatitis B Vaccines (1 of 3 - 19+ 3-dose series) 11/26/2003 Cervical Cancer Screening: P ap Smear 2005 COVID-19 Vaccine (2023-2 5 season) 2023 Influenza Vaccine (#1) 2023 HIB Vaccines Aged Out No longer eligi ble based on patient's age to complete this topic HPV Vaccines Aged Out No longer eligi ble based on patient's age to complete this topic Hepatitis A Vaccines Aged Out No long er eligible based on patient's age to complete this topic IPV Vaccines Aged Out No longer eligi ble based on patient's age to complete this topic MMR Vaccines Aged Out No longer eligi ble based on patient's age to complete this topic Meningococcal ACWY Vaccine Aged Out N o longer eligible based on patient's age to complete this topic Pneumococcal Vaccine: Pediat rics (0 to 5 Years) and At-Risk Patients (6 to 64 Years) Aged Out No longer eligible b ased on patient's age to complete this topic RSV Immunization Patients Un natalie 20 months Aged Out No longer eligible b ased on patient's age to complete this topic Varicella Vaccines Aged Out No longer eligible based on patient's age to complete this topic
== END 2024-04-21 14:08 | disposition home or self-care (01) ==
LOC: HO.US 14:07
PROVIDERS: PCP Physician Assistant; Visit Provider Urology
DX: N39.0 Urinary tract infection, site not specified (principal)
CPT/HCPCS: 76770

== ENCOUNTER → 2024-04-21 14:08 | Outpatient (BNV) | payer OTHER, SELFPAY | PROVIDERS: PCP Physician Assistant; Visit Provider Specialist | DX: N39.0 Urinary tract infection, site not specified (principal) | CPT/HCPCS: 76770 ==

== ENCOUNTER 2025-02-18 13:37 | Outpatient (AMB) | payer OTHER, SELFPAY ==
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
[2025-02-18 13:58] VITALS: BP 110/78; PULSE 75; RESP 14; TEMP 36.2; O2SAT 98; BMI 32.1
--- OUTSIDE RECORDS SUMMARY | 2025-02-18 16:12 | XMS_ITS | Clinical Summary ---
Author Organization [facility] it Address [address] [place] [address] Care Team Providers Care Preschool Associate Teacher Name Role Phone Unavailable Primary Care Provider Unavailabl e Social History Tobacco Use Types Packs/Day Years Used Date Smoking Tobacco: Never Assessed Comments Unknown Sex and Gender Information Value Date Recorded Sex Assigned at Not on file Legal Sex Female 9:02 AM EST Gender Identity Not on file Sexual Orientation Not on file Plan of Treatment Health Maintenance Due Date Last Done Comments Breast Cancer Screening 1984 DTaP,Tdap,and Td Vaccines (1 - Tdap) 11/26/2003 Hepatitis B Vaccines (1 of 3 - 19+ 3-dose series) 11/26/2003 Cervical Cancer Screening: P ap Smear 2005 HPV Vaccines (1 - 3-dose SCD M series) 11/26/2011 Depression Screening 03/19/2024 COVID-19 Vaccine (1 - 2024-2 6 season) 2024 Influenza Vaccine (#1) 2024 RSV Immunization Adult Patie nts (1 - 1-dose 75+ series) 11/26/2059 HIB Vaccines Aged Out No longer eligi [...] patient's age to complete this topic Meningococcal B Vaccine Aged Out No l onger eligible based on patient's age to complete this topic Pneumococcal Vaccine: Pediat rics (0 to 5 Years) and At-Risk Patients (6 to 49 Years) Aged Out No longer eligible b ased on patient's age to complete this topic RSV Immunization Patients Un natalie 20 months Aged Out No longer eligible b ased on patient's age to complete this topic Varicella Vaccines Aged Out No longer eligible based on patient's age to complete this topic
== END 2025-02-18 14:33 | disposition home or self-care (01) ==
LOC: HO.HMCH 13:38
PROVIDERS: PCP Physician Assistant; Visit Provider Physician Assistant
DX: Z23 Encounter for immunization (principal)

== ENCOUNTER → 2025-02-18 13:37 | Outpatient (BNVA) | payer OTHER, SELFPAY | PROVIDERS: PCP Physician Assistant; Visit Provider Physician Assistant | DX: Z00.00 Encounter for general adult medical examination without abnormal findings (principal); Z23 Encounter for immunization; F41.1 Generalized anxiety disorder; F33.1 Major depressive disorder, recurrent, moderate; R41.3 Other amnesia; E66.811 Obesity, class 1; M79.7 Fibromyalgia; N30.10 Interstitial cystitis (chronic) without hematuria; Z13.1 Encounter for screening for diabetes mellitus | CPT/HCPCS: 90471; 90656 ==